=== PATIENT | male | born 1935 | race Caucasian/White ===

== ENCOUNTER 2024-07-21 15:10 | Emergency (ER) | payer OTHER, SELFPAY ==
[2024-07-21 15:15] VITALS: BP 143/81
[2024-07-21 15:34] LABS: % Basophils 0.3 % (0-2); % Eosinophils 3.6 % (0-6); % Immature Granulocytes 0.3 % (0-0.5); % Lymphocytes 29.4 % (20.5-51.1); % Monocytes 8.5 % (1.7-9.3); % Neutrophils 57.9 % (42.2-75.2); Absolute Eosinophils 0.2 10^3/uL (0-0.7); Absolute Monocytes 0.6 10^3/uL (0.1-0.6); Absolute Neutrophils 3.9 10^3/uL (1.4-6.5); Hemoglobin 14.6 g/dL (13.0-18.0); Mean Corp Hgb Conc. 35.6 g/dL (33.0-37.0); Mean Corpuscular Hgb 30.5 pg (27.0-31.0); Mean Corpuscular Volume 85.8 fL (80.0-94.0); Mean Platelet Volume 10.7 fL (7.4-10.4); Nucleated Red Blood Cells % 0 % (-); Platelet Count 231 10^3/uL (130-400); Red Blood Cell Count 4.78 10^6/uL (4.70-6.10); Red Cell Dist. Width 13.7 % (11.5-14.5); White Blood Cell Count 6.7 10^3/uL (4.8-10.8)
--- NOTE | 2024-07-21 15:39 | ED.GENMED ---
ED Provider Triage
<Jorge Tsai PA-C - Last Filed: 07/22/24 10:10>
-
Patient seen by provider in Triage?: Seen in Triage
Attestation: A medical screening examination has been initiated by a qualified medical provider. Based on the assessment performed at this time, it has been determined that an emergent medical condition may exist and the patient has been informed
that further medical evaluation and possible additional diagnostic testing may be needed.
HPI: 89-year-old male presents the emergency department for evaluation of lightheadedness and slow pulse rate noticed at home. He states his pulse oximeter was reading a heart rate in the 30s to 40s. Denies chest pain or shortness of breath
GENERAL: Alert , in no apparent distress
EYE: No visual abnormalities.
NECK: Trachea midline
ENT: No visible abnormalities.
LUNGS: No acute respiratory distress
NEUROLOGICAL: Alert and oriented
SKIN: Skin intact. No visible changes.
MUSCULOSKELETAL: Moving extremities normally
PSYCH: Normal and appropriate interaction.
A/P: Check CbC, CMP, EKG. VS normal in triage
This is a medical evaluation conducted in person to initiate diagnostic evaluation and provide initial therapeutics. Please see further documentation by the treating clinician.
History of Present Illness
<Jorge Tsai PA-C - Last Filed: 07/22/24 10:10>
General
Chief Complaint: Heart Rate Problem
Time Seen by Provider: 07/21/24 19:00
<Hansel Hines MD - Last Filed: 07/21/24 21:03>
General
Source: patient
Exam Limitations: none
History of Present Illness
History of Present Illness:
89-year-old male was outside working. Light work. Developed relatively sudden lightheadedness. Went inside checked his blood pressure which was elevated with a systolic in 150s. Heart rate was in the 40s. Patient felt fuzzy throughout the day.
No chest pain shortness of breath. Similar episode last week. Currently asymptomatic
Past History
<Jorge Tsai PA-C - Last Filed: 07/22/24 10:10>
Past History
ED Past Medical History: Asthma and Hypercholesterolemia; Negative CVA or IDDM
Social History
Tobacco: Non-smoker
Alcohol: None
Drug: None
Personal:
Living: with family
Phy Exam
<Hansel Hines MD - Last Filed: 07/21/24 21:03>
Physical Exam
Physical Exam:
GENERAL: Alert and oriented in no apparent distress
EYE: Orbits normal.
NECK: Supple, no thyroid palpable
ENT: Pharynx without erythema
CARDIAC: Regular rate and rhythm occasional skipped beat without any obvious murmurs.
LUNGS: Clear breath sounds,normal
ABDOMEN: Soft, without focal tenderness or distention
NEUROLOGICAL: Alert and oriented , grossly non-focal. Speech normal.
SKIN: Warm and dry, no rash or lesion, no discoloration, skin intact.
MUSCULOSKELETAL: No edema,no deformity.Good color
PSYCH: Normal and appropriate interaction.
Course
<Jorge Tsai PA-C - Last Filed: 07/22/24 10:10>
Orders/Labs/Results
Orders:
Orders
07/21/24 15:11
Electrocardiogram (*1) Urgent
Reason for Study: Chest Pain
EKG- Treatment ONCE
07/21/24 15:22
Complete Blood Count/With Diff Urgent
Comprehensive Metabolic Panel Urgent
TSH Urgent
Abnormal Lab Results
07/21/24
15:22
MPV 10.7 H fL
(7.4-10.4)
BUN 21 H mg/dl
(9-20)
Glucose 160 H mg/dl
(70-99)
Total Bilirubin 1.5 H mg/dl
(0.2-1.3)
07/21/24 15:22
07/21/24 15:22
Vital Signs
Initial and Last Documented VS:
Initial Vital Signs
Temp Pulse Resp BP Pulse Ox
99 F 50 18 143/81 95
07/21/24 15:15 07/21/24 15:15 07/21/24 15:15 07/21/24 15:15 07/21/24 15:15
Last Documented Vital Signs
Temp Pulse Resp BP Pulse Ox
99 F 60 19 133/62 94
07/21/24 15:15 07/21/24 20:45 07/21/24 20:45 07/21/24 20:00 07/21/24 20:15
<Hansel Hines MD - Last Filed: 07/21/24 21:03>
Orders/Labs/Results
Orders:
Orders
07/21/24 15:11
Electrocardiogram (*1) Urgent
Reason for Study: Chest Pain
EKG- Treatment ONCE
07/21/24 15:22
Complete Blood Count/With Diff Urgent
Comprehensive Metabolic Panel Urgent
TSH Urgent
Abnormal Lab Results
07/21/24
15:22
MPV 10.7 H fL
(7.4-10.4)
BUN 21 H mg/dl
(9-20)
Glucose 160 H mg/dl
(70-99)
Total Bilirubin 1.5 H mg/dl
(0.2-1.3)
07/21/24 15:22
07/21/24 15:22
Vital Signs
Initial and Last Documented VS:
Initial Vital Signs
Temp Pulse Resp BP Pulse Ox
99 F 50 18 143/81 95
07/21/24 15:15 07/21/24 15:15 07/21/24 15:15 07/21/24 15:15 07/21/24 15:15
Last Documented Vital Signs
Temp Pulse Resp BP Pulse Ox
99 F 60 19 133/62 94
07/21/24 15:15 07/21/24 20:45 07/21/24 20:45 07/21/24 20:00 07/21/24 20:15
<Hansel Hines MD - Last Filed: 07/21/24 21:03>
MDM/Problems Addressed
Differential Diagnosis Includes:
Patient describing an episode of lightheadedness without chest pain shortness of breath or diaphoresis. Blood pressure was actually high during this episode. Heart rate was low. He is in a normal sinus rhythm in the 70s but at times will have
runs of bigeminy where his palpable pulses half of that. Although during these episodes he remains asymptomatic. This may be what he was feeling when his heart rate was in the 40s. EKG here does have some lateral ST depressions although a
previous monitor strips are suspicious of the same. We have no EKG since 2017. Will discuss plan with cardiology
<Jorge Tsai PA-C - Last Filed: 07/22/24 10:10>
*Critical Care Note
Total Time (30-74mins, 75-104mins- exclusive of procedures): Not Applicable
<Hansel Hines MD - Last Filed: 07/21/24 21:03>
*Pulse Oximetry
Patient hypoxic: no
*EKG
Interpreted by ED Provider?: Yes
Interpretation: normal
Comparison EKG: changes noted
Heart Rate: 98
Rate: normal
Rhythm: sinus and PVC's
[place]: normal axis
Interval: normal interval
QRS Pattern: normal QRS
Ischemia: ST depression
Data Reviewed
Review of Other/Old Records Reveals: Labs, Records and Testing
<Hansel Hines MD - Last Filed: 07/21/24 21:03>
Update Note
Update Note:
Patient is remained asymptomatic and comfortable. No recurrent episodes. No unusual arrhythmias. Discussed with cardiology. Comfortable with outpatient follow-up.
ED Attending Note
<Jorge Tsai PA-C - Last Filed: 07/22/24 10:10>
-
Portions of this chart may have been created with voice recognition software.� Occasional wrong word or��sound alike� substitutions may have occurred due to the inherent limitations of voice recognition software.
Discharge Plan
Departure
Patient Disposition: Home (Routine Discharge)
Date of Disposition: 07/21/24
Time of Disposition: 21:02
Patient with high blood pressure during this ER visit?: Yes
Discharge Problem:
Near syncope, Episodic bradycardia
Instructions: Near Fainting (DC), BLOOD PRESSURE
Prescriptions:
No Action
atorvastatin 80 MG tablet
80 mg PO QPM Qty: 30 0RF
ezetimibe 10 MG tablet
10 mg PO HS
tamsulosin 0.4 MG capsule
0.8 mg PO HS
montelukast 10 MG tablet
10 mg PO QPM
clopidogrel 75 MG tablet
75 mg PO DAILY
cetirizine [Zyrtec] 10 mg Tablet
10 mg PO DAILY PRN (Reason: allergies)
ascorbic acid (vitamin C) [Vitamin C] 500 MG tablet
1,000 mg PO DAILY
oxycodone 5 mg tablet
5 - 10 mg PO Q6H PRN (Reason: moderate-severe pain) Qty: 30 0RF
Rx Instructions:
1 tab for moderate pain, 2 if severe.
Dx total joint.
dexamethasone 4 mg tablet
4 mg PO BID Qty: 7 0RF
Rx Instructions:
Start night of discharge and continue twice a day for 3 days post-surgery.
Take with food.
ondansetron HCl 4 mg tablet
4 mg PO Q6H PRN (Reason: nausea and vomiting) Qty: 30 0RF
Rx Instructions:
Take 1/2 hour prior to Oxycodone if experiencing recurrent nausea.
famotidine [Pepcid] 20 mg tablet
20 mg PO HS Qty: 30 0RF
Rx Instructions:
Take nightly while on full dose Aspirin post-surgery to prevent GI upset.
fluticasone propionate 1 SPRAY spray,suspension
2 spray intranasal DAILY
albuterol sulfate 90 mcg/actuation Hfa Aerosol Inhaler
2 puff INHALATION Q6H PRN (Reason: SOB)
aspirin 325 mg tablet
325 mg PO DAILY Qty: 30 0RF
Rx Instructions:
Take daily x4 weeks for blood clot prevention.
docusate sodium [Colace] 100 mg capsule
100 mg PO BID Qty: 30 0RF
senna 8.6 mg capsule
17.2 mg PO BID Qty: 30 0RF
acetaminophen [Acetaminophen Extra Strength] 500 mg tablet
1,000 mg PO Q6H Qty: 60 0RF
Rx Instructions:
DO NOT exceed >4000 mg daily.
mupirocin 2 % ointment
1 applic intranasal BID Qty: 1 0RF
chlorthalidone 25 MG tablet
25 mg PO DAILY Qty: 30 0RF
Rx Instructions:
HOLD if systolic blood pressure <130 while on Oxycodone.
potassium chloride [Klor-Con M20] 20 MEQ tablet,ER particles/crystals
20 meq PO DAILY Qty: 0 0RF
Rx Instructions:
HOLD if holding Chlorthalidone.
folic acid 0.4 MG tablet
0.4 mg PO DAILY Qty: 0 0RF
cholecalciferol (vitamin D3) 1,000 UNITS tablet
1,000 units PO DAILY Qty: 30 0RF
budesonide-formoterol [Symbicort] 1 PUFF HFA aerosol inhaler
2 puff inhalation R DAILY Qty: 1 0RF
multivitamin with folic acid [Tab-A-Mahsa] 1 TABLET tablet
1 tab PO DAILY Qty: 0 0RF
Referrals:
Rodrigo Rios MD [Family Provider] - Follow up in 2-3 days
Activity Restrictions/Additional Instructions:
Call your president [employer] first thing in the morning. They are aware that you will be calling.
You need close follow-up and likely will need a Holter monitor.
Interventions
Interventions:
*Risk Screen - Suicide Last Done: 07/21/24 15:15
*General Assessment Last Done: 07/21/24 18:01
*Neglect/Abuse Screening Last Done: 07/21/24 18:01
ED- Fall Risk Assessment Last Done: 07/21/24 18:01
*ED COVID-19 Vaccine History Last Done: 07/21/24 18:01
*Nursing Disposition Last Done: 07/21/24 21:34
ED- Cardiac Assessment Last Done: 07/21/24 18:01
ED- Pulmonary Assessment Last Done: 07/21/24 18:01
Discharge Date and Time
Discharge Date/Time: 07/21/24 21:34
Print Language: MONGOLIAN
[2024-07-21 15:43] LABS: ALT (SGPT) 33 U/L (0-50); AST (SGOT) 44 U/L (17-59); Albumin 4.5 g/dl (3.5-5.0); Alkaline Phosphatase 99 U/L (38-126); Blood Urea Nitrogen 21 mg/dl (9-20); Calcium 10.2 mg/dl (8.4-10.2); Carbon Dioxide 23 mmol/L (22-30); Chloride 101 mmol/L (98-107); Glucose 160 mg/dl (70-99); Potassium 4.1 mmol/L (3.5-5.1); Sodium 137 mmol/L (135-145); Total Bilirubin 1.5 mg/dl (0.2-1.3); Total Protein 7.2 g/dl (6.3-8.2); eGFR > 60.00
[2024-07-21 16:13] LABS: TSH 2.89 uIU/ml (0.47-4.68)
[2024-07-21 17:21] VITALS: BP 148/72
[2024-07-21 18:00] VITALS: BP 143/68
[2024-07-21 18:01] VITALS: BMI 26.1
[2024-07-21 19:00] VITALS: BP 140/75
[2024-07-21 20:00] VITALS: BP 133/62
== END 2024-07-21 21:34 | disposition home or self-care (01) ==
LOC: EMR 15:10
PROVIDERS: Physician Assistant; EMERGENCY PHYSICIAN Emergency Medicine; FAMILY PHYSICIAN Family Medicine
DX: R55 Syncope and collapse (principal); R00.1 Bradycardia, unspecified; E78.00 Pure hypercholesterolemia, unspecified; J45.909 Unspecified asthma, uncomplicated
CPT/HCPCS: 99283; 80053; 84443; 85025; 93005

== ENCOUNTER → 2024-07-30 09:37 | Outpatient (REF) | payer OTHER, SELFPAY | LOC: RCS 09:37 | PROVIDERS: ATTENDING PHYSICIAN Internal Medicine Cardiovascular Disease; FAMILY PHYSICIAN Family Medicine | DX: R42 Dizziness and giddiness (principal); R00.1 Bradycardia, unspecified | CPT/HCPCS: 93225; 93226 ==

== ENCOUNTER → 2024-08-28 08:01 | Outpatient (REF) | payer OTHER, SELFPAY | LOC: RCS 08:01 | PROVIDERS: ATTENDING PHYSICIAN Internal Medicine Cardiovascular Disease; FAMILY PHYSICIAN Family Medicine | DX: I35.0 Nonrheumatic aortic (valve) stenosis (principal) | CPT/HCPCS: 93306 ==

== ENCOUNTER → 2025-02-12 08:20 | Outpatient (REF) | payer OTHER, SELFPAY | LOC: RAD 08:20 | PROVIDERS: ATTENDING PHYSICIAN Family Medicine | DX: M25.552 Pain in left hip (principal); Z68.26 Body mass index [BMI] 26.0-26.9, adult | CPT/HCPCS: 73502 ==

== ENCOUNTER 2025-02-17 22:52 | Inpatient (IN) | payer OTHER, SELFPAY ==
[2025-02-17] VITALS (17 sets, daily range): BP systolic 82–138; BP diastolic 41–72; BMI 25.2
[2025-02-17 19:24] LABS: % Basophils 0.3 % (0-2); % Eosinophils 1.2 % (0-6); % Immature Granulocytes 0.3 % (0-0.5); % Lymphocytes 18.5 % (20.5-51.1); % Monocytes 8.2 % (1.7-9.3); % Neutrophils 71.5 % (42.2-75.2); Absolute Eosinophils 0.1 10^3/uL (0-0.7); Absolute Lymphocytes 1.2 10^3/uL (1.2-3.4); Absolute Monocytes 0.5 10^3/uL (0.1-0.6); Absolute Neutrophils 4.6 10^3/uL (1.4-6.5); Hematocrit 25.8 % (39.0-52.0); Hemoglobin 8.7 g/dL (13.0-18.0); Mean Corp Hgb Conc. 33.7 g/dL (33.0-37.0); Mean Corpuscular Hgb 30.2 pg (27.0-31.0); Mean Corpuscular Volume 89.6 fL (80.0-94.0); Mean Platelet Volume 10.9 fL (7.4-10.4); Nucleated Red Blood Cells % 0 % (-); Platelet Count 233 10^3/uL (130-400); Red Blood Cell Count 2.88 10^6/uL (4.70-6.10); Red Cell Dist. Width 13.7 % (11.5-14.5); White Blood Cell Count 6.5 10^3/uL (4.8-10.8)
[2025-02-17 19:38] LABS: ALT (SGPT) 26 U/L (0-50); AST (SGOT) 30 U/L (17-59); Albumin 3.4 g/dl (3.5-5.0); Alkaline Phosphatase 78 U/L (38-126); Blood Urea Nitrogen 56 mg/dl (9-20); Calcium 9.7 mg/dl (8.4-10.2); Carbon Dioxide 28 mmol/L (22-30); Chloride 101 mmol/L (98-107); Estimated Creatinine Clearance 45 ml/min; Glucose 172 mg/dl (70-99); Potassium 3.7 mmol/L (3.5-5.1); Sodium 136 mmol/L (135-145); Total Bilirubin 0.6 mg/dl (0.2-1.3); Total Protein 5.6 g/dl (6.3-8.2); eGFR > 60.00
[2025-02-17 19:48] LABS: Troponin I < 0.012 ng/ml
[2025-02-17] MEDS: PROTONIX 100 IV (21:58)
[2025-02-17] MEDS: PROTONIX IV 80 MG IV (21:58)
--- NOTE | 2025-02-17 22:00 | ED.GENMED ---
History of Present Illness
General
Chief Complaint: Fainting Sensation
Source: patient
Time Seen by Provider: 02/17/25 21:37
History of Present Illness
History of Present Illness:
This patient is an 89-year-old male who presents emergency department with complaints of black stool, happening about 2-3 times a day, for the last 3 days. He has never had this before. He denies a history of GI bleed in the past, peptic ulcer
disease, gastritis, heavy nonsteroidal use, heavy alcohol use. He has never had an endoscopy. Today, he was extremely dizzy with upright position and slightly short of breath which prompted his visit here. He denies bright red blood per rectum,
hematemesis, hematuria, or bleeding elsewhere. He denies chest pain, abdominal pain, fever, chills, nausea, vomiting, or other complaints
Past History
Past History
ED Past Medical History: Asthma, HTN, Hypercholesterolemia and Other (Stroke, hypertension, BPH, lower GI bleed due to internal hemorrhoids, diverticulosis, rectal cancer, aortic stenosis, COPD); Negative CVA or IDDM
ED Past Surgical History: Other (Colorectal)
Social History
Tobacco: Non-smoker
Alcohol: None
Drug: None
Personal:
Living: with family
Phy Exam
Physical Exam
Physical Exam:
GENERAL: Alert , in no apparent distress
EYE: pupils equal and reactive, conjunctive a pale
NECK: Supple, no significant adenopathy.
ENT: o/p clr, mmm.
CARDIAC: Regular rate and rhythm, systolic murmur noted.
LUNGS: Clear breath sounds bilaterally, no acute respiratory distress, no wheezes/rales/rhonchi
ABDOMEN: Soft, without focal tenderness, no r/g, no cvat
NEUROLOGICAL: Alert and oriented, no focal neuro deficits
SKIN: Warm and dry, skin intact.
MUSCULOSKELETAL: No edema, well perfused.
PSYCH: Normal and appropriate interaction.
Course
Orders/Labs/Results
Orders:
Orders
02/17/25 18:48
ECG [Electrocardiogram (*1)] Urgent
Reason for Study: Syncope
02/17/25 19:17
Type And Crossmatch [Type+Screen] Urgent
B12 [Vitamin B12] Urgent
Complete Blood Count/With Diff Urgent
Comprehensive Metabolic Panel Urgent
Folate Urgent
Iron Urgent
Comment: ADDED
Total Iron Binding Urgent
Comment: ADDED
Troponin I Urgent
02/17/25 21:44
Pantoprazole 80 mg/100 ml Nss [Protonix] 80 mg in 100 ml IV NOW
Pantoprazole [Protonix IV] 80 mg IV NOW STA
02/17/25 22:29
Admit/Transfer Patient As Directed
Co-Sign Provider:
Level of Care: Inpatient admission
Assign to:: IMU- Intermediate Care
Physician / Group: chavo
Diagnosis: UGIB
Reason for Hospitalization: UGIB
Expected length of stay greater than two midnights?: Yes
ELOS- Estimated Length of Stay in days: 2
I certify the patient meets the requirements for IP care: Yes
PRN Pain Medication Management As Directed
May give lesser potent ordered pain med per pt: Yes
preference::
Protocol:: Medication orders for pain may be administered in a
manner that supports deferring to patient preference
when the pt is:
- Requesting an ordered lesser potent pain medication.
Least to most potent pain medications are defined
as: acetaminophen < NSAID < tramadol < opioids
(morphine, oxycodone, hydromorphone).
- Requesting a lesser dose of the same medication IF
ORDERED.
- Requesting a less intrusive route of administration
if both routes are prescribed by the provider (PO <
IV).
02/17/25 22:30
Code Status As Directed
Resuscitation Status: Full Code
02/17/25 22:34
0.9% Sodium Chloride 500 ml [Nss] 500 ml IV BOLUS
02/17/25 23:00
Flush (0.9% Sodium Chloride) [Flush (Nss)] See Dose Instructions IV PER PROTOCOL
02/18/25 00:09
Polyethylene Glycol Powder [Miralax] 17 grams PO DAILYPRN PRN
02/18/25 00:09
Consult Notification Routine
Specialty to Notify: Gastroenterology
Date consulting provider notified: 02/18/25
Time consulting provider notified: 07:06
Notified:: Provider
GASTROINTESTINAL CONSULT Routine
Consulting Provider: Nazia Poe
Was physician already notified: No
Reason for consult: UGIB
Activity As Directed
Activity Level: As Tolerated
Pneumatic Compression Sleeves As Directed
Type: Knee high
Vital Signs As Directed
Frequency: Per unit guidelines
DX Deep Vein Thrombosis Video Routine
02/18/25 03:53
Complete Blood Count/With Diff IN AM
Comprehensive Metabolic Panel IN AM
02/18/25 08:00
Pantoprazole 80 mg/100 ml Nss [Protonix] 80 mg in 100 ml IV Q10H
02/18/25 Dinner
NPO
Allow oral meds: Yes
Allow clear liquids: No
02/18/25 19:18
Hemoglobin Q8
Abnormal Lab Results
02/17/25
19:17
RBC 2.88 L 10^6/uL
(4.70-6.10)
Hgb 8.7 L g/dL
(13.0-18.0)
Hct 25.8 L %
(39.0-52.0)
MPV 10.9 H fL
(7.4-10.4)
Lymphocytes % 18.5 L %
(20.5-51.1)
BUN 56 H mg/dl
(9-20)
Glucose 172 H mg/dl
(70-99)
Iron 46 L ug/dl
(49-181)
% Saturation 13 L %
(20-50)
Total Protein 5.6 L g/dl
(6.3-8.2)
Albumin 3.4 L g/dl
(3.5-5.0)
Folate > 20.0 H ng/ml
(2.76-20)
Crossmatch IS Only See Detail
02/17/25 19:17
02/17/25 19:17
Vital Signs
Initial and Last Documented VS:
Initial Vital Signs
Temp Pulse Resp Pulse Ox
97.9 F 93 16 97
02/17/25 18:46 02/17/25 18:46 02/17/25 18:46 02/17/25 18:46
Last Documented Vital Signs
Temp Pulse Resp BP Pulse Ox
99 F 70 16 113/57 99
02/23/25 07:36 02/23/25 07:36 02/23/25 07:36 02/23/25 07:36 02/23/25 07:36
*Critical Care Note
Total Time (30-74mins, 75-104mins- exclusive of procedures): 32
Update Note
Update Note:
Patient presents to the Emergency Department with lightheadedness with upright position, black stools
Number and Complexity of Problems Addressed at the Encounter
� Chronic conditions affecting care:
� Acute Exacerbation and/or Progression of Chronic Illness:
� Differential Diagnosis includes: GI bleed related to peptic ulcers, gastritis, heavy nonsteroidal use, anemia, electrolyte disorder, etc. etc.
Amount and/or Complexity of Data to be Reviewed and Analyzed
� I performed an independent evaluation of and my interpretation is:
EKG: Read by me, normal sinus rhythm, normal rate, normal axis, no acute ischemia
CT:
Xrays:
Laboratory Studies: Patient newly anemic at 8.7, prior value was 14.6 in July 2024, elevated BUN consistent with suspected GI bleed, mild hyperglycemia without associated acidosis
Other:
� Review of other/old records reveals: Discharge summaries reviewed, patient admitted with a lower GI bleed in 2019 related to internal hemorrhoids was on antiplatelet agent at that time.
� Clinical information was obtained by an independent historian:
� Prescriptions/Medications Considered but not given:
� Further testing considered but not performed:
Risk of Complications and/or Morbidity or Mortality of Patient Management
� Social determinants of health affecting care:
� Discussion with other providers (PCP, Hospitalists, Consultants, etc):
� Escalation of care including admission/observation vs risk of discharge considered: Patient is symptomatic when he sits up. He is asymptomatic laying in bed and his blood pressure is stable at this time. No active bleeding
noted. PPI drip initiated. Consideration for blood transfusion however given stable vital signs and lack of active bleeding, will observe. Admission for further workup including suspected endoscopy, discussed with Dr. Gee.
ED Attending Note
-
Portions of this chart may have been created with voice recognition software.� Occasional wrong word or��sound alike� substitutions may have occurred due to the inherent limitations of voice recognition software.
Discharge Plan
Departure
Patient Disposition: Admit
Date of Disposition: 02/17/25
Time of Disposition: 22:05
Admit to doctor: nyla
Presentation/result/management discussed w/ accepting MD/DO: Hospitalist
Condition: Fair
Discharge Problem:
GI bleed
Interventions
Interventions:
*Risk Screen - Suicide Last Done: 02/17/25 18:50
*General Assessment Last Done: 02/17/25 18:50
*Neglect/Abuse Screening Last Done: 02/17/25 18:50
*ED- Fall Risk Assessment Last Done: 02/17/25 19:24
*ED COVID-19 Vaccine History Last Done: 02/17/25 19:24
*Nursing Disposition Last Done: 02/17/25 23:25
ED- Cardiac Assessment Last Done: 02/17/25 19:24
ED- Neurological Assessment Last Done: 02/17/25 19:24
Discharge Date and Time
Discharge Date/Time: 02/18/25 00:15
--- NOTE | 2025-02-17 22:32 | HPS.HSE ---
Family Physician
-
Family Physician: Rodrigo Rios
Chief Complaint
-
black stool
History of Present Illness
89-year-old male past medical history of hypertension, hyperlipidemia, osteoarthritis, carotid atherosclerosis, moderate aortic stenosis, mild to moderate aortic regurgitation, CVA, COPD, questionable obstructive sleep apnea, diverticulosis,
hemorrhoids, colon cancer status post partial colectomy and radiation, multinodular goiter, polymyalgia rheumatica, BPH, eczema, osteopenia, prediabetes, presenting with black stool 2-3 times a day for the past 3 days. Denies NSAID use or heavy
alcohol use. Never had endoscopy. Today he was very dizzy with upright position slight shortness of breath prompted his visit here. He denies any bright red blood per rectum. Denies chest pain or abdominal pain, fevers or chills or nausea or
vomiting.
Medical History
Past Medical History
Past Medical History: Reports Other (hypertension, hyperlipidemia, osteoarthritis, carotid atherosclerosis, moderate aortic stenosis, mild to moderate aortic regurgitation, CVA, COPD, questionable obstructive sleep apnea, diverticulosis,
hemorrhoids, colon cancer status post partial colectomy and radiation, multinodular goiter, polymya)
Past Surgical History: Reports None
Social History
Tobacco: Non-smoker
Alcohol: None
Drug: None
Family History
Family History: Not pertinent
Allergies / Home Medications
Allergies reflects when Allergies were last updated in [facility].
Home Medications with original date entered in [facility]
Allergy/Medication List:
Allergies
Allergy/AdvReac Type Severity Reaction Status Date / Time
No Known Allergies Allergy Verified 02/17/25 18:53
Home Medications
budesonide-formoterol HFA 160 mcg-4.5 mcg/actuation aerosol inhaler (Symbicort) 2 puff inhalation R DAILY ##1 09/12/16
cholecalciferol (vitamin D3) 25 mcg (1,000 unit) tablet 1,000 units PO DAILY ##30 09/12/16
folic acid 400 mcg tablet 0.4 mg PO DAILY ##0 09/12/16
multivitamin with folic acid 400 mcg tablet (Tab-A-Mahsa) 1 tab PO DAILY ##0 09/12/16
atorvastatin 80 mg tablet 80 mg PO QPM ##30 10/03/16
ezetimibe 10 mg tablet 10 mg PO HS Mental Health/Anxiety 04/28/20
montelukast 10 mg tablet 10 mg PO QPM Lung/breathing issues 04/28/20
tamsulosin 0.4 mg capsule 0.8 mg PO HS Urinary issue 04/28/20
clopidogrel 75 mg tablet 75 mg PO DAILY Blood clot prevention/tx 04/29/20
ascorbic acid (vitamin C) 500 mg tablet (Vitamin C) 1,000 mg PO DAILY 07/03/23
cetirizine 10 mg tablet (Zyrtec) 10 mg PO DAILY PRN allergies 07/03/23
albuterol sulfate 90 mcg/actuation aerosol inhaler 2 puff inhalation Q6H PRN SOB 07/09/23
dexamethasone 4 mg tablet 4 mg PO BID inflammation #7 tabs 07/09/23
famotidine 20 mg tablet (Pepcid) 20 mg PO HS #30 tabs 07/09/23
fluticasone propionate 50 mcg/actuation nasal spray,suspension 2 spray intranasal DAILY 07/09/23
ondansetron HCl 4 mg tablet 4 mg PO Q6H PRN nausea and vomiting #30 tabs 07/09/23
oxycodone 5 mg tablet 5 - 10 mg (1 - 2 x 5 mg) PO Q6H PRN moderate-severe pain #30 tabs 07/09/23
acetaminophen 500 mg tablet (Acetaminophen Extra Strength) 1,000 mg (2 x 500 mg) PO Q6H #60 tabs 07/29/23
aspirin 325 mg tablet 325 mg PO DAILY #30 tabs 07/29/23
chlorthalidone 25 mg tablet 25 mg PO DAILY #30 tabs 07/29/23
docusate sodium 100 mg capsule (Colace) 100 mg PO BID #30 caps 07/29/23
mupirocin 2 % topical ointment 1 applic intranasal BID #1 tube 07/29/23
potassium chloride 20 mEq tablet,extended release(part/cryst) (Klor-Con M) 20 meq PO DAILY Supplement #0 tabs 07/29/23
sennosides 8.6 mg capsule (senna) 17.2 mg (2 x 8.6 mg) PO BID #30 caps 07/29/23
Review of Systems
-
History Source: Patient
A 12 point ROS was completed and negative except as noted: Yes
Constitutional: Reports No Symptoms
EENT: Reports No Symptoms
Respiratory: Reports No Symptoms
Cardiac: Reports No Symptoms
Abdomen/GI: Reports See HPI
: Reports No Symptoms
Musculoskeletal: Reports No Symptoms
Skin: Reports No Symptoms
Neurological: Reports No Symptoms
Endocrine: Reports No Symptoms
Hematologic/Lymphatic: Reports No Symptoms
Psych: Reports No Symptoms
Physical Exam
Vital Signs
Vital Signs
Temp Pulse Resp BP Pulse Ox
97.9 F 93 20 105/57 98
02/17/25 18:46 02/17/25 21:30 02/17/25 21:30 02/17/25 21:30 02/17/25 21:30
Physical Exam
General: Well Developed, Well Nourished and No Apparent Distress
HEENT: NormoCephalic, Moist mucous membranes and Atraumatic
Respiratory: Clear
Cardiac: S1/S2 and Regular Rhythm; No Murmur or Rub
GI: Soft, Non Tender, Non Distended and Normal Bowel Sounds; No Organomegaly
Rectal: Deferred by Provider
Musculoskeletal: No Clubbing, No Cyanosis and No Edema
Skin: No Rash
Neuro: Nonfocal/grossly intact
Laboratory Results
-
02/17/25 19:17
02/17/25 19:17
Laboratory Results
Total Bilirubin 0.6 mg/dl (0.2-1.3) 02/17/25 19:17
AST 30 U/L (17-59) 02/17/25 19:17
ALT 26 U/L (0-50) 02/17/25 19:17
Alkaline Phosphatase 78 U/L (38-126) 02/17/25 19:17
Troponin I < 0.012 ng/ml 02/17/25 19:17
Data Reviewed
-
Lab Data: Labs Reviewed by me
Old Records: Reviewed
Impression/Plan
-
IMPRESSION:
PLAN:
# Upper GI bleeding with orthostatic symptoms
# Symptomatic acute blood loss anemia with orthostatic symptoms
-No active bleeding
- Hemoglobin 8.7 from 14.6 in July
-Hold Plavix
-Hold antihypertensive medication
- Type and screen
-Blood consent signed
-Transfuse for hemoglobin under 7 or active bleeding
-IV fluid bolus
-Check hemoglobin every 8 hours
- Protonix drip
- N.p.o.
-Check iron studies, B12 and folate
- GI consulted
History of colon cancer status post partial colectomy and radiation
Diverticulosis
Moderate aortic stenosis
Mild to moderate aortic regurgitation
History of hemorrhoids
Essential hypertension
- Hold chlorthalidone
Hyperlipidemia
- Continue statin, Zetia
Osteoarthritis
Carotid atherosclerosis
History of CVA
COPD
- Continue montelukast
- Continue inhalers
Questionable obstructive sleep apnea
Colon cancer status post partial colectomy/radiation
Multinodular goiter
Polymyalgia rheumatica
BPH
- Continue tamsulosin
Eczema
Osteopenia
Prediabetes
Full code
DVT prophylaxis SCDs
N.p.o.
[2025-02-17] MEDS: NSS 500 IV (23:09)
[2025-02-17 23:40] LABS: Iron 46 ug/dl (49-181)
[2025-02-17 23:50] LABS: Percent Saturation 13 % (20-50); Total Iron Binding Capacity 344 ug/dl (261-462)
[2025-02-18] VITALS (26 sets, daily range): BP systolic 14–130; BP diastolic 51–73; BMI 25.1
[2025-02-18 00:50] LABS: Folate > 20.0 ng/ml (2.76-20); Vitamin B12 857 pg/ml (239-931)
--- NOTE | 2025-02-18 00:57 | PTCARENOTE ---
Patient transported to IMU from ED. Report received from [facility]. Pt AAOx3, pleasant. Pt NSR w/ PVCs on the monitor. Pt on room air SpO2 96%. No BM at this time. Pt appears pallor, and experiencing dizziness when sitting up. Pt says his last BM
was 5/7 in AM. Pt describes stool as 'formed and black'. Pt last dose of Plavix 5/7 AM. Iv Protonix gtt cont. SCDs on. Pt educated and oriented to the unit. Call rojas within reach.
[2025-02-18 04:33] LABS: ALT (SGPT) 21 U/L (0-50); AST (SGOT) 23 U/L (17-59); Albumin 2.9 g/dl (3.5-5.0); Alkaline Phosphatase 62 U/L (38-126); Blood Urea Nitrogen 69 mg/dl (9-20); Carbon Dioxide 24 mmol/L (22-30); Chloride 106 mmol/L (98-107); Estimated Creatinine Clearance 49 ml/min; Glucose 167 mg/dl (70-99); Potassium 3.7 mmol/L (3.5-5.1); Sodium 139 mmol/L (135-145); Total Bilirubin 0.7 mg/dl (0.2-1.3); eGFR > 60.00
[2025-02-18 04:42] LABS: % Basophils 0.3 % (0-2); % Eosinophils 0.3 % (0-6); % Immature Granulocytes 0.3 % (0-0.5); % Lymphocytes 24.6 % (20.5-51.1); % Monocytes 8.2 % (1.7-9.3); % Neutrophils 66.3 % (42.2-75.2); Absolute Lymphocytes 1.5 10^3/uL (1.2-3.4); Absolute Monocytes 0.5 10^3/uL (0.1-0.6); Absolute Neutrophils 4.3 10^3/uL (1.4-6.5); Hematocrit 20.1 % (39.0-52.0); Hemoglobin 6.8 g/dL (13.0-18.0); Mean Corp Hgb Conc. 33.8 g/dL (33.0-37.0); Mean Corpuscular Hgb 30.2 pg (27.0-31.0); Mean Corpuscular Volume 89.3 fL (80.0-94.0); Mean Platelet Volume 10.7 fL (7.4-10.4); Nucleated Red Blood Cells % 0 % (-); Platelet Count 209 10^3/uL (130-400); Red Blood Cell Count 2.25 10^6/uL (4.70-6.10); Red Cell Dist. Width 13.8 % (11.5-14.5); White Blood Cell Count 6.5 10^3/uL (4.8-10.8)
--- NOTE | 2025-02-18 05:02 | PTCARENOTE ---
Patient attempted to sit up, pt immediately stated he felt 'dizzy and weak'. Pt advised to lay back down and will alternatively try the bedpan for any BMs moving forward. Pt color is pallor, lips pale.
--- NOTE | 2025-02-18 06:01 | PTCARENOTE ---
Hgb 6.8 this AM. 1unit PRBCs ordered. Blood running.
[2025-02-18] MEDS: ZOFRAN 4 MG IV (06:59)
[2025-02-18] MEDS: PROTONIX 100 IV ×2 (07:28→20:21)
--- NOTE | 2025-02-18 07:30 | PTCARENOTE ---
Patient vomited out large amounts of blood with clots saturating gown and linens. Pt then vomited again and able to measure 200cc of bloody emesis. Blood is infusing. EDUARDA Cordoba made aware and ordered IV Zofran, administered, see MAR.
--- NOTE | 2025-02-18 08:59 | CON.GI ---
Addendum entered and electronically signed by Nazia Poe MD 02/18/25 11:20:
I saw and examined the patient.
The medical engineer note was reviewed and I agree with the note.
--melena/ hematemesis / UGI bleeding / hx of CVA on plavix
-- hx of colon cancer s/p resection in [place] . as per patient in remission . last colonoscopy 2019( details below )
plan
N.p.o.
Continue monitor H&H
Continue Protonix drip
Will schedule urgent endoscopy since patient had significant hematemesis this a.m ( Although it is recommended to wait for 5 days for Plavix washout for elective procedures )
Discussed with patient/family at bedside. Agreeable with procedure
Original Note:
Consultation
-
Date/Time Consultation Requested: 02/18/2025
Date/Time Consultation Performed: 02/18/2025
Requesting Provider: Dr Nazia Poe
Performing Provider: Dr Laya Judge
Reason for Consultation: upper GI bleed
Medical History
Chief Complaint / HPI
Chief Complaint: Melena
History of Present Illness:
89-year-old male with past history of CVA on Plavix, colon cancer s/p partial colectomy and radiation, hemorrhoids, diverticulosis presents with melena. GI is consulted to evaluate this.
Patient reports that he had 3 episodes of black stool started 2 days ago(02/16) and worsened. He had formed stools and no diarrhea. He called his PCP who told him to go to the ER immediately. Patient has a history of colon cancer s/p partial
colectomy and radiation at [place] in 2011. He denies NSAID use or heavy alcohol use. Patient patient reports of dizziness which started 1 day ago describing it as 'room spinning around' when he gets up from the bed. He also had 1 episode of
emesis with black color blood. His last colonoscopy in 2019 which showed diverticulosis in the sigmoid colon and in the descending colon, nonbleeding internal hemorrhoids, evidence of end-to-end [place]�colonic anastomosis. Hemoglobin is 6.8 and
currently patient is receiving 1 unit of blood.
Past Medical History
Past Medical History: CVA, HTN, Hypercholesterolemia, Valvular Disease (Aortic regurgitation, aortic stenosis) and Other (Diverticulosis, hemorrhoids, colon cancer s/p partial colectomy and radiation)
Past Surgical History: Bowel Resection (Partial colectomy)
Social History
Tobacco: Non-Smoker
Alcohol: None
Drug: None
Personal:
Living: With Family
Employment: Retired
Family History
Family History: Reviewed & Not Pertinent
Allergies / Home Medications
Allergy/AdvReac Type Severity Reaction Status Date / Time
No Known Allergies Allergy Verified 02/17/25 18:53
�Medication �Instructions �Recorded
budesonide-formoterol HFA 160 2 puff inhalation R DAILY ##1 09/12/16
mcg-4.5 mcg/actuation aerosol
inhaler (Symbicort)
cholecalciferol (vitamin D3) 25 1,000 units PO DAILY ##30 09/12/16
mcg (1,000 unit) tablet
folic acid 400 mcg tablet 0.4 mg PO DAILY ##0 09/12/16
multivitamin with folic acid 400 1 tab PO DAILY ##0 09/12/16
mcg tablet (Tab-A-Mahsa)
atorvastatin 80 mg tablet 80 mg PO QPM ##30 10/03/16
ezetimibe 10 mg tablet 10 mg PO HS Mental Health/Anxiety 04/28/20
montelukast 10 mg tablet 10 mg PO QPM Lung/breathing issues 04/28/20
tamsulosin 0.4 mg capsule 0.8 mg PO HS Urinary issue 04/28/20
clopidogrel 75 mg tablet 75 mg PO DAILY Blood clot 04/29/20
prevention/tx
ascorbic acid (vitamin C) 500 mg 1,000 mg PO DAILY 07/03/23
tablet (Vitamin C)
cetirizine 10 mg tablet (Zyrtec) 10 mg PO DAILY PRN allergies 07/03/23
albuterol sulfate 90 mcg/actuation 2 puff inhalation Q6H PRN SOB 07/09/23
aerosol inhaler
dexamethasone 4 mg tablet 4 mg PO BID inflammation #7 tabs 07/09/23
famotidine 20 mg tablet (Pepcid) 20 mg PO HS #30 tabs 07/09/23
fluticasone propionate 50 2 spray intranasal DAILY 07/09/23
mcg/actuation nasal
spray,suspension
ondansetron HCl 4 mg tablet 4 mg PO Q6H PRN nausea and 07/09/23
vomiting #30 tabs
oxycodone 5 mg tablet 5 - 10 mg (1 - 2 x 5 mg) PO Q6H 07/09/23
PRN moderate-severe pain #30 tabs
acetaminophen 500 mg tablet 1,000 mg (2 x 500 mg) PO Q6H #60 07/29/23
(Acetaminophen Extra Strength) tabs
aspirin 325 mg tablet 325 mg PO DAILY #30 tabs 07/29/23
chlorthalidone 25 mg tablet 25 mg PO DAILY #30 tabs 07/29/23
docusate sodium 100 mg capsule 100 mg PO BID #30 caps 07/29/23
(Colace)
mupirocin 2 % topical ointment 1 applic intranasal BID #1 tube 07/29/23
potassium chloride 20 mEq 20 meq PO DAILY Supplement #0 tabs 07/29/23
tablet,extended
release(part/cryst) (Klor-Con M)
sennosides 8.6 mg capsule (senna) 17.2 mg (2 x 8.6 mg) PO BID #30 07/29/23
caps
Review of Systems
-
All other systems: A 12 pt ROS was Negative except as stated above in HPI
Vital Signs
Temp Pulse Resp BP Pulse Ox
98.8 F 74 18 123/59 97
02/18/25 06:08 02/18/25 06:08 02/18/25 06:08 02/18/25 06:08 02/18/25 05:44
Physical Exam
Exam
General: Comfortable
HEENT: Normocephalic and Anicteric
Respiratory: Clear
Cardiac: S1/S2, Regular Rhythm and Murmur
GI: Soft, Non Tender, Non Distended and Normal Bowel Sounds
Neuro: AO x 3
Psych: Calm
Results
WBC 6.5 10^3/uL (4.8-10.8) 02/18/25 03:53
Hgb 6.8 g/dL (13.0-18.0) L* D 02/18/25 03:53
Hct 20.1 % (39.0-52.0) L* 02/18/25 03:53
MCV 89.3 fL (80.0-94.0) 02/18/25 03:53
Plt Count 209 10^3/uL (130-400) 02/18/25 03:53
Absolute Neuts (auto) 4.3 10^3/uL (1.4-6.5) 02/18/25 03:53
Sodium 139 mmol/L (135-145) 02/18/25 03:53
Potassium 3.7 mmol/L (3.5-5.1) 02/18/25 03:53
Chloride 106 mmol/L (98-107) 02/18/25 03:53
Carbon Dioxide 24 mmol/L (22-30) 02/18/25 03:53
BUN 69 mg/dl (9-20) H 02/18/25 03:53
Creatinine 1.0 mg/dL (0.7-1.3) 02/18/25 03:53
Calcium 9.0 mg/dl (8.4-10.2) 02/18/25 03:53
Total Bilirubin 0.7 mg/dl (0.2-1.3) 02/18/25 03:53
AST 23 U/L (17-59) 02/18/25 03:53
ALT 21 U/L (0-50) 02/18/25 03:53
Alkaline Phosphatase 62 U/L (38-126) 02/18/25 03:53
Diagnostic Image Results:
Prior GI Procedures:
EGD:
Colonoscopy: 05/03/20
-Diverticulosis in the sigmoid colon and in the descending colon.
- Non-bleeding internal hemorrhoids. This is likely the
source of rectal bleeding.
- Narrowing in the sigmoid colon that was transversed
using upper EGD scope.
- There was evidence of a prior end-to-end colo-colonic
anastomosis at 10 cm proximal to the anus
- No specimens collected.
Assessment / Plan
-
Assessment and plan
#Upper GI bleeding
#Acute anemia due to blood loss
# History of colon cancer s/p partial colectomy and radiation
- HB 6.8, currently being transfused 1 unit of blood
- Closely monitor H&H
- Continue IV fluids, PPI drip
- Previous colonoscopy in 2019 showed diverticulosis in the sigmoid colon and in the descending colon, nonbleeding internal hemorrhoids, evidence of end-to-end [place]�colonic anastomosis.
- Typically, Plavix is held for 5 days prior to endoscopy, but given the patient's active bleeding, we will plan to proceed with the scope sooner.
- Reports of dizziness --- likely due to low HB
-
-
Thank you for consultation and allowing me to participate in the patient's care. Please call the conveyor worker GI physician during the after hours with any questions or concerns.
[2025-02-18 10:46] LABS: Hematocrit 25.1 % (39.0-52.0); Hemoglobin 8.7 g/dL (13.0-18.0)
[2025-02-18] MEDS: REGLAN 5 MG IV (11:39)
--- NOTE | 2025-02-18 13:52 | W.PN.UPDATE ---
Update Note
Progress Note Update
Updated patient's daughter ( Anette ) about EGD findings/ plan .
--- NOTE | 2025-02-18 14:12 | W.PN.HOSP.TC ---
Today's Communication/Plan
-
monitor for bleeding
npo
PPI
hold plavix
Assessment / Plan
Assessment / Plan
Physical Exam
General: Well Developed, Well Nourished and No Apparent Distress
HEENT: NormoCephalic, Moist mucous membranes and Atraumatic
Respiratory: Clear
Cardiac: S1/S2 and Regular Rhythm; No Murmur or Rub
GI: Soft, Non Tender, Non Distended and Normal Bowel Sounds; No Organomegaly
Rectal: Deferred by Provider
Musculoskeletal: No Clubbing, No Cyanosis and No Edema
Skin: No Rash
Neuro: Nonfocal/grossly intact
PLAN:
# Upper GI bleeding with orthostatic symptoms
# Symptomatic acute blood loss anemia with orthostatic symptoms
Trend CBC, HgB goal > 7
-Hold Plavix
-Hold antihypertensive medication
- GI consulted
EGD 02/17
- Tortuous esophagus.
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
- Hemostatic spray ( endoclot ) applied.
-Small amount of Hematin (altered
blood/mdzcpv-qycvda-vdmt material) was found in the
gastric body.
- Normal examined duodenum.
- No specimens collected ( patient has been on plavix
and was actively having UGI bleeding on admission )
- NPO today.
- continue PPI drip
-hold plavix
- monitor H/H
- repeat EGD with bx after plavix wash out next week
-will get oncology staging work up once UGI bleeding resolves.
History of colon cancer status post partial colectomy and radiation
Diverticulosis
Moderate aortic stenosis
Mild to moderate aortic regurgitation
History of hemorrhoids
Essential hypertension
- Hold chlorthalidone
Hyperlipidemia
- Continue statin, Zetia
Osteoarthritis
Carotid atherosclerosis
History of CVA
COPD
- Continue montelukast
- Continue inhalers
Questionable obstructive sleep apnea
Colon cancer status post partial colectomy/radiation
Multinodular goiter
Polymyalgia rheumatica
BPH
- Continue tamsulosin
Eczema
Osteopenia
Prediabetes
Full code
DVT prophylaxis SCDs
N.p.o.
Anticipated Discharge: 24 - 48 hours
Subjective/Interval History
-
Date of Service: February 18, 2025
projectile hematemesis today
Objective Data
-
Labs:
Laboratory Results
02/18/25 02/18/25
03:53 10:10
WBC 6.5
Hgb 6.8 L* D 8.7 L D
Hct 20.1 L* 25.1 L
Plt Count 209
Sodium 139
Potassium 3.7
Chloride 106
Carbon Dioxide 24
BUN 69 H
Creatinine 1.0
Glucose 167 H
Calcium 9.0
Total Bilirubin 0.7
AST 23
ALT 21
Alkaline Phosphatase 62
Vital Signs:
Vital Signs
Temp Pulse Resp BP Pulse Ox
98.6 F 74 14 117/56 100
02/18/25 13:34 02/18/25 13:34 02/18/25 13:34 02/18/25 13:34 02/18/25 13:34
I&O
02/17/25 02/18/25 02/19/25
06:59 06:59 06:59
Intake Total 0 / 0 250 / 250
Output Total 600 / 600 200 / 200
Balance -600 / -600 50 / 50
Review of Systems
-
History Source: Patient
All other systems: Not reviewed unless documented
Data Reviewed
-
Diagnostic Radiology: Report Reviewed by me
Labs: Labs Reviewed by me
--- NOTE | 2025-02-18 14:45 | PTCARENOTE ---
Reported bloody emesis to hospitalist - Pt seen by GI and endoscopy ordered once H&H drawn and reviewed. Pt sent for endoscopy procedure, GI reviewed results with Pt and family. Pt senttled back into room, emotional support provided. Will
continue to monitor and assess.
[2025-02-18 19:24] LABS: Hemoglobin 8.5 g/dL (13.0-18.0)
[2025-02-18] MEDS: NSS 1000 IV (21:24)
--- NOTE | 2025-02-18 22:15 | PTCARENOTE ---
Pt AAOx3, pleasant. Pt son Rey at the bedside at change of shift. Pt NSR on the monitor. 97% on room air. Pt denies any nausea, cramping, or abdominal discomfort at this time. EDUARDA Sutton ordered fluids, IVF infusing. IV protonix cont. Hygiene and
oral care done. SCDs on. Pt ringing call rojas appropriately, call rojas within reach.
[2025-02-19] VITALS (9 sets, daily range): BP systolic 106–132; BP diastolic 41–80; BMI 25.0
[2025-02-19 04:43] LABS: Hematocrit 22.7 % (39.0-52.0); Hemoglobin 7.6 g/dL (13.0-18.0); Mean Corp Hgb Conc. 33.5 g/dL (33.0-37.0); Mean Corpuscular Hgb 30.6 pg (27.0-31.0); Mean Corpuscular Volume 91.5 fL (80.0-94.0); Mean Platelet Volume 10.7 fL (7.4-10.4); Platelet Count 178 10^3/uL (130-400); Red Blood Cell Count 2.48 10^6/uL (4.70-6.10); Red Cell Dist. Width 15.3 % (11.5-14.5)
[2025-02-19 05:06] LABS: ALT (SGPT) 20 U/L (0-50); AST (SGOT) 21 U/L (17-59); Albumin 2.8 g/dl (3.5-5.0); Alkaline Phosphatase 57 U/L (38-126); Blood Urea Nitrogen 53 mg/dl (9-20); Calcium 8.8 mg/dl (8.4-10.2); Carbon Dioxide 32 mmol/L (22-30); Chloride 111 mmol/L (98-107); Estimated Creatinine Clearance 41 ml/min; Glucose 120 mg/dl (70-99); Potassium 3.5 mmol/L (3.5-5.1); Sodium 146 mmol/L (135-145); Total Bilirubin 0.7 mg/dl (0.2-1.3); Total Protein 4.9 g/dl (6.3-8.2); eGFR 58.17
--- NOTE | 2025-02-19 05:50 | W.PN.GI.CBS2 ---
Today's Communication / Plan
-
Please see assessment and plan for details.
Assessment / Plan
-
1. GI bleed: Secondary to gastric fundus/GE junction mass in the setting of Plavix, status post Hemospray, overall doing well. Hemoglobin has slightly drifted down, though hemodynamically stable and no further signs of gross bleeding. Unclear
etiology, given its appearance endoscopically at least from pictures of a GIST tumor is still in the differential versus malignancy. At this point we will continue PPI, start clear liquids, continue to trend hemoglobin and supportive care. Will
check CT scan to help further differentiate etiology. Pending his clinical course would plan repeat EGD with biopsies after Plavix washout, could be Saturday if still inpatient, if continues to do well then possibly as outpatient with close follow-up
pending clinical course.
Subjective
Subjective
Date of Service: February 19, 2025
Patient feeling okay, no episodes overnight, slept well. No vomiting, bowel movements, abdominal pain, chest pain or shortness of breath.
Objective
Data Reviewed
Laboratory Data:
Laboratory Results
02/19/25 04:10
02/19/25 04:10
Laboratory Results
Total Bilirubin 0.7 mg/dl (0.2-1.3) 02/19/25 04:10
AST 21 U/L (17-59) 02/19/25 04:10
ALT 20 U/L (0-50) 02/19/25 04:10
Alkaline Phosphatase 57 U/L (38-126) 02/19/25 04:10
Vital Signs and I&O:
Vital Signs
Temp Pulse Resp BP Pulse Ox
97.6 F 59 13 129/54 97
02/19/25 03:50 02/19/25 04:00 02/19/25 04:00 02/19/25 04:00 02/18/25 22:14
I&O
02/17/25 02/18/25 02/19/25
06:59 06:59 06:59
Intake Total 0 / 0 250 / 250
Output Total 600 / 600 750 / 750
Balance -600 / -600 -500 / -500
Physical Exam
Physical Exam
General: NAD
Abdomen: normal bowel sounds, soft, no tenderness, no masses or bruits, no ascites
[2025-02-19] MEDS: PROTONIX 100 IV ×2 (06:05→17:37)
[2025-02-19] MEDS: OMNIPAQUE 50 ML PO (08:36)
--- NOTE | 2025-02-19 14:15 | W.PN.HOSP.TC ---
Today's Communication/Plan
-
ADAT
PPI
hold plavix
assess hgb and monitor
Assessment / Plan
Assessment / Plan
Physical Exam
General: Well Developed, Well Nourished and No Apparent Distress
HEENT: NormoCephalic, Moist mucous membranes and Atraumatic
Respiratory: Clear
Cardiac: S1/S2 and Regular Rhythm; No Murmur or Rub
GI: Soft, Non Tender, Non Distended and Normal Bowel Sounds; No Organomegaly
Rectal: Deferred by Provider
Musculoskeletal: No Clubbing, No Cyanosis and No Edema
Skin: No Rash
Neuro: Nonfocal/grossly intact
PLAN:
# Upper GI bleeding with orthostatic symptoms
# Symptomatic acute blood loss anemia with orthostatic symptoms
Trend CBC, HgB goal > 7
-Hold Plavix
-Hold antihypertensive medication
- GI consulted
EGD 02/17
- Tortuous esophagus.
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
- Hemostatic spray ( endoclot ) applied.
-Small amount of Hematin (altered
blood/ybkwho-malknn-exzj material) was found in the
gastric body.
- Normal examined duodenum.
- No specimens collected ( patient has been on plavix
and was actively having UGI bleeding on admission )
- ADAT
- continue PPI drip
-hold plavix
- monitor H/H
- repeat EGD with bx after plavix wash out next week
-will get oncology staging work up once UGI bleeding resolves.
#Hypernatremia
-monitor with diet
History of colon cancer status post partial colectomy and radiation
Diverticulosis
Moderate aortic stenosis
Mild to moderate aortic regurgitation
History of hemorrhoids
Essential hypertension
- Hold chlorthalidone
Hyperlipidemia
- Continue statin, Zetia
Osteoarthritis
Carotid atherosclerosis
History of CVA
COPD
- Continue montelukast
- Continue inhalers
Questionable obstructive sleep apnea
Colon cancer status post partial colectomy/radiation
Multinodular goiter
Polymyalgia rheumatica
BPH
- Continue tamsulosin
Eczema
Osteopenia
Prediabetes
Full code
DVT prophylaxis SCDs
ADAT
Anticipated Discharge: 24 - 48 hours
Subjective/Interval History
-
Date of Service: February 19, 2025
CLD, adat
Objective Data
-
Labs:
Laboratory Results
02/19/25 02/19/25 02/19/25
04:10 05:53 13:53
WBC 7.0 Pending Pending
Hgb 7.6 L Pending Pending
Hct 22.7 L Pending Pending
Plt Count 178 Pending Pending
Sodium 146 H
Potassium 3.5
Chloride 111 H
Carbon Dioxide 32 H
BUN 53 H
Creatinine 1.2
Glucose 120 H
Calcium 8.8
Total Bilirubin 0.7
AST 21
ALT 20
Alkaline Phosphatase 57
02/19/25
21:53
WBC Pending
Hgb Pending
Hct Pending
Plt Count Pending
Sodium
Potassium
Chloride
Carbon Dioxide
BUN
Creatinine
Glucose
Calcium
Total Bilirubin
AST
ALT
Alkaline Phosphatase
Vital Signs:
Vital Signs
Temp Pulse Resp BP Pulse Ox
97.6 F 56 16 132/49 97
02/19/25 07:05 02/19/25 06:00 02/19/25 06:00 02/19/25 06:00 02/18/25 22:14
I&O
02/18/25 02/19/25 02/20/25
06:59 06:59 06:59
Intake Total 0 / 0 730 / 730
Output Total 600 / 600 1050 / 1050
Balance -600 / -600 -320 / -320
Review of Systems
-
History Source: Patient
All other systems: Not reviewed unless documented
Data Reviewed
-
Diagnostic Radiology: Report Reviewed by me
Labs: Labs Reviewed by me
[2025-02-19] MEDS: NSS IV (14:27)
[2025-02-19 14:52] LABS: Hematocrit 22.3 % (39.0-52.0); Hemoglobin 7.6 g/dL (13.0-18.0); Mean Corp Hgb Conc. 34.1 g/dL (33.0-37.0); Mean Corpuscular Hgb 30.6 pg (27.0-31.0); Mean Corpuscular Volume 89.9 fL (80.0-94.0); Mean Platelet Volume 10.5 fL (7.4-10.4); Platelet Count 207 10^3/uL (130-400); Red Blood Cell Count 2.48 10^6/uL (4.70-6.10); Red Cell Dist. Width 15.6 % (11.5-14.5); White Blood Cell Count 9.1 10^3/uL (4.8-10.8)
--- NOTE | 2025-02-19 16:48 | CM ---
Patient with Dx Upper GI bleed. Room air. Receiving IVF. Per nurse; weak gait/transfers.
Met with patient yesterday who was sleeping.
Spoke with patient's son Peewee;
the patient resides with his in a 2 story house with 3 SOHAM and chair lift to 2nd floor bedroom.
The patient was independent in ADLs and ambulation without using an assistive device.
He is the caregiver for his .
Son states he and his sister Anette will be staying with the patient after d/c, for about a week.
The patient has no DME, prior VN or SNF.
PCP - Rodrigo Rios
Pharm[facility] - [facility]
Message to Dr Guerrier requesting PT Eval.
Plan follow up after seen by PT.
[2025-02-19 21:11] LABS: Hematocrit 21.3 % (39.0-52.0); Hemoglobin 7.2 g/dL (13.0-18.0); Mean Corp Hgb Conc. 33.8 g/dL (33.0-37.0); Mean Corpuscular Hgb 30.1 pg (27.0-31.0); Mean Corpuscular Volume 89.1 fL (80.0-94.0); Mean Platelet Volume 10.4 fL (7.4-10.4); Platelet Count 207 10^3/uL (130-400); Red Blood Cell Count 2.39 10^6/uL (4.70-6.10); White Blood Cell Count 9.5 10^3/uL (4.8-10.8)
[2025-02-20] VITALS (18 sets, daily range): BP systolic 104–156; BP diastolic 35–116; PULSE 73; O2SAT 98; BMI 25.2
[2025-02-20] MEDS: NSS 1000 IV (01:59)
[2025-02-20] MEDS: PROTONIX 100 IV ×3 (02:35→22:13)
--- NOTE | 2025-02-20 03:09 | PTCARENOTE ---
Pt received at beginning of shift resting in bed. AAOx3. Finished walking halls just prior to beginning of shift. Pt without SOB. Speaking full sentences on RA. POX 95%. VSS. Afebrile. SR/SB on CM rate 50's-60's. IVF's and Protonix gtt continue
infusing as ordered. No BM overnight. Overnight Hgb 7.2. Using urinal at bedside. Rest of assessment as document. Turns self in bed. Call rojas remains within reach. Will continue to monitor.
[2025-02-20 04:15] LABS: Hematocrit 19.6 % (39.0-52.0); Hemoglobin 6.7 g/dL (13.0-18.0); Mean Corp Hgb Conc. 34.2 g/dL (33.0-37.0); Mean Corpuscular Hgb 30.9 pg (27.0-31.0); Mean Corpuscular Volume 90.3 fL (80.0-94.0); Mean Platelet Volume 10.4 fL (7.4-10.4); Platelet Count 147 10^3/uL (130-400); Red Blood Cell Count 2.17 10^6/uL (4.70-6.10); Red Cell Dist. Width 14.9 % (11.5-14.5)
[2025-02-20 04:26] LABS: ALT (SGPT) 19 U/L (0-50); AST (SGOT) 24 U/L (17-59); Albumin 2.8 g/dl (3.5-5.0); Alkaline Phosphatase 65 U/L (38-126); Blood Urea Nitrogen 35 mg/dl (9-20); Calcium 8.5 mg/dl (8.4-10.2); Carbon Dioxide 29 mmol/L (22-30); Chloride 105 mmol/L (98-107); Estimated Creatinine Clearance 49 ml/min; Glucose 100 mg/dl (70-99); Potassium 3.2 mmol/L (3.5-5.1); Sodium 139 mmol/L (135-145); Total Bilirubin 0.7 mg/dl (0.2-1.3); Total Protein 4.8 g/dl (6.3-8.2); eGFR > 60.00
[2025-02-20] MEDS: KCL 40 MEQ PO (05:39)
--- NOTE | 2025-02-20 05:47 | PTCARENOTE ---
Am Hgb 6.7 and K+ 3.2. Pt without BM overnight. No other signs of bleeding. VSS. FACTORY ASSEMBLER TT'd and orders entered for 1 unit PRBCs and KCL 40 PO. Pt received KCL and unit PRBC infusing at this time without s/s of reaction. Pt currently resting
comfortably. Call rojas remains within reach. Will continue to monitor.
--- NOTE | 2025-02-20 07:56 | W.PN.GI.CBS2 ---
Today's Communication / Plan
-
Please see assessment plan for details.
Assessment / Plan
-
1. GI bleed: Secondary to gastric fundus/GE junction mass in the setting of Plavix, status post Hemospray, overall doing okay without further gross bleeding, though hemoglobin did drop again today. Unclear etiology, given its appearance
endoscopically at least from pictures of a GIST tumor is still in the differential versus malignancy. CT scan did not define any clear mass, vague hypodensities in the liver which will need further imaging. Given his drop in hemoglobin we
discussed the possibility of him going home and outpatient workup versus continued observation here and repeat EGD with biopsy after Plavix washout. After discussion he wishes to stay here which is the safer bed given his drop in hemoglobin today.
Will continue liquid diet, PPI, supportive care and transfusion. Plan EGD on Saturday with biopsies, sooner if signs of brisk active bleeding.
Subjective
Subjective
Date of Service: February 20, 2025
Patient doing okay, no nausea or vomiting, tolerated full liquids, no bowel movements overnight, no lightheadedness or dizziness.
Objective
Data Reviewed
Laboratory Data:
Laboratory Results
02/20/25 03:36
02/20/25 03:36
Laboratory Results
Total Bilirubin 0.7 mg/dl (0.2-1.3) 02/20/25 03:36
AST 24 U/L (17-59) 02/20/25 03:36
ALT 19 U/L (0-50) 02/20/25 03:36
Alkaline Phosphatase 65 U/L (38-126) 02/20/25 03:36
Vital Signs and I&O:
Vital Signs
Temp Pulse Resp BP Pulse Ox
98.2 F 56 14 118/49 95
02/20/25 05:35 02/20/25 06:00 02/20/25 06:00 02/20/25 06:00 02/19/25 22:52
I&O
02/19/25 02/20/25 02/21/25
06:59 06:59 06:59
Intake Total 730 / 730 1380 / 1380 250 / 250
Output Total 1050 / 1050 1050 / 1050
Balance -320 / -320 330 / 330 250 / 250
Physical Exam
Physical Exam
General: NAD
Abdomen: normal bowel sounds, soft, no tenderness, no masses or bruits, no ascites
--- NOTE | 2025-02-20 14:56 | W.PN.HOSP.TC ---
Today's Communication/Plan
-
PPI drip
Full liquid diet
Monitor hemoglobin
Potassium repletion
Plavix washout, EGD with biopsies on Saturday
Assessment / Plan
Assessment / Plan
Physical Exam
General: Well Developed, Well Nourished and No Apparent Distress
HEENT: NormoCephalic, Moist mucous membranes and Atraumatic
Respiratory: Clear
Cardiac: S1/S2 and Regular Rhythm; No Murmur or Rub
GI: Soft, Non Tender, Non Distended and Normal Bowel Sounds; No Organomegaly
Rectal: Deferred by Provider
Musculoskeletal: No Clubbing, No Cyanosis and No Edema
Skin: No Rash
Neuro: Nonfocal/grossly intact
PLAN:
# Upper GI bleeding with orthostatic symptoms
# Symptomatic acute blood loss anemia with orthostatic symptoms
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
Trend CBC, HgB goal > 7
� Transfuse 1 PRBC 5/10
-Hold Plavix
-Hold antihypertensive medication
- GI consulted
-Continue full liquid diet, PPI
� Plan for EGD on Saturday with biopsies after plavix washout
-will get oncology staging work up once UGI bleeding resolves.
#Hypokalemia
� Monitor and replete
#Hypernatremia
-monitor with diet
History of colon cancer status post partial colectomy and radiation
Diverticulosis
Moderate aortic stenosis
Mild to moderate aortic regurgitation
History of hemorrhoids
Essential hypertension
- Hold chlorthalidone
Hyperlipidemia
- Continue statin, Zetia
Osteoarthritis
Carotid atherosclerosis
History of CVA
COPD
- Continue montelukast
- Continue inhalers
Questionable obstructive sleep apnea
Colon cancer status post partial colectomy/radiation
Multinodular goiter
Polymyalgia rheumatica
BPH
- Continue tamsulosin
Eczema
Osteopenia
Prediabetes
Full code
DVT prophylaxis SCDs
ADAT
Anticipated Discharge: > 48 hours
Subjective/Interval History
-
Date of Service: February 20, 2025
No acute events although had hemoglobin drop
Objective Data
-
Labs:
Laboratory Results
02/20/25
03:36
WBC 6.0
Hgb 6.7 L*
Hct 19.6 L*
Plt Count 147 D
Sodium 139
Potassium 3.2 L
Chloride 105
Carbon Dioxide 29
BUN 35 H
Creatinine 1.0
Glucose 100 H
Calcium 8.5
Total Bilirubin 0.7
AST 24
ALT 19
Alkaline Phosphatase 65
Vital Signs:
Vital Signs
Temp Pulse Resp BP Pulse Ox
98.4 F 71 19 116/53 97
02/20/25 07:50 02/20/25 12:02 02/20/25 12:02 02/20/25 10:00 02/20/25 08:00
I&O
02/19/25 02/20/25 02/21/25
06:59 06:59 06:59
Intake Total 730 / 730 1380 / 1380 250 / 250
Output Total 1050 / 1050 1050 / 1050
Balance -320 / -320 330 / 330 250 / 250
Review of Systems
-
History Source: Patient
All other systems: Not reviewed unless documented
Data Reviewed
-
Diagnostic Radiology: Report Reviewed by me
Labs: Labs Reviewed by me
--- NOTE | 2025-02-20 15:00 | PTCARENOTE ---
Patient AAOx3, no complaints. No BMs today. Repeat Hgb improved to 8.3. VSS. Up in chair majority of day. Patient making needs known. Will closely monitor.
[2025-02-20 16:43] LABS: Hemoglobin 8.3 g/dL (13.0-18.0)
[2025-02-21] VITALS (13 sets, daily range): BP systolic 102–140; BP diastolic 44–75
[2025-02-21 03:54] LABS: Hematocrit 22.1 % (39.0-52.0); Hemoglobin 7.6 g/dL (13.0-18.0); Mean Corp Hgb Conc. 34.4 g/dL (33.0-37.0); Mean Corpuscular Hgb 30.3 pg (27.0-31.0); Mean Platelet Volume 10.6 fL (7.4-10.4); Platelet Count 173 10^3/uL (130-400); Red Blood Cell Count 2.51 10^6/uL (4.70-6.10); Red Cell Dist. Width 14.5 % (11.5-14.5); White Blood Cell Count 5.7 10^3/uL (4.8-10.8)
[2025-02-21 04:48] LABS: ALT (SGPT) 19 U/L (0-50); AST (SGOT) 27 U/L (17-59); Albumin 2.8 g/dl (3.5-5.0); Alkaline Phosphatase 77 U/L (38-126); Blood Urea Nitrogen 20 mg/dl (9-20); Calcium 8.9 mg/dl (8.4-10.2); Carbon Dioxide 27 mmol/L (22-30); Chloride 107 mmol/L (98-107); Estimated Creatinine Clearance 55 ml/min; Glucose 104 mg/dl (70-99); Potassium 3.7 mmol/L (3.5-5.1); Sodium 137 mmol/L (135-145); Total Protein 4.9 g/dl (6.3-8.2); eGFR > 60.00
--- NOTE | 2025-02-21 07:21 | W.PN.GI.CBS2 ---
Today's Communication / Plan
-
Please see assessment and plan for details.
Assessment / Plan
-
1. GI bleed: Secondary to gastric fundus/GE junction mass in the setting of Plavix, status post Hemospray, overall doing okay without further gross bleeding, responded appropriately to transfusion, received 2 units total. At this point we will
plan repeat EGD tomorrow after Plavix washout to reassess and biopsy. CT scan without distinct mass, vague hypodensities in the liver which will likely need further imaging pending biopsy results.
Subjective
Subjective
Date of Service: February 21, 2025
Patient feeling okay, 1 small dark bowel movement, no abdominal pain, nausea or vomiting, tolerating full liquid diet without difficulty.
Objective
Data Reviewed
Laboratory Data:
Laboratory Results
02/21/25 03:35
02/21/25 03:35
Laboratory Results
Total Bilirubin 1.0 mg/dl (0.2-1.3) 02/21/25 03:35
AST 27 U/L (17-59) 02/21/25 03:35
ALT 19 U/L (0-50) 02/21/25 03:35
Alkaline Phosphatase 77 U/L (38-126) 02/21/25 03:35
Vital Signs and I&O:
Vital Signs
Temp Pulse Resp BP Pulse Ox
98.3 F 57 22 105/62 98
02/21/25 03:00 02/21/25 06:00 02/21/25 06:00 02/21/25 06:00 02/21/25 06:00
I&O
02/20/25 02/21/25 02/22/25
06:59 06:59 06:59
Intake Total 1380 / 1380 670 / 670
Output Total 1050 / 1050 1150 / 1150
Balance 330 / 330 -480 / -480
Physical Exam
Physical Exam
General: NAD
Abdomen: normal bowel sounds, soft, no tenderness, no masses or bruits, no ascites
[2025-02-21] MEDS: PROTONIX 100 IV ×2 (09:00→18:42)
--- NOTE | 2025-02-21 14:24 | W.PN.HOSP.TC ---
Today's Communication/Plan
-
PPI ggt
FLD, NPO after MN
Bx tomorrow
Assessment / Plan
Assessment / Plan
Physical Exam
General: Well Developed, Well Nourished and No Apparent Distress
HEENT: NormoCephalic, Moist mucous membranes and Atraumatic
Respiratory: Clear
Cardiac: S1/S2 and Regular Rhythm; No Murmur or Rub
GI: Soft, Non Tender, Non Distended and Normal Bowel Sounds; No Organomegaly
Rectal: Deferred by Provider
Musculoskeletal: No Clubbing, No Cyanosis and No Edema
Skin: No Rash
Neuro: Nonfocal/grossly intact
PLAN:
# Upper GI bleeding with orthostatic symptoms
# Symptomatic acute blood loss anemia with orthostatic symptoms
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
Trend CBC, HgB goal > 7
� Transfuse 1 PRBC 5/10
-Hold Plavix
-Hold antihypertensive medication
- GI consulted
-Continue full liquid diet, PPI
� Plan for EGD on Saturday with biopsies after plavix washout
-will get oncology staging work up once UGI bleeding resolves.
#Hypokalemia
� Monitor and replete
#Hypernatremia, resolved
-monitor with diet
History of colon cancer status post partial colectomy and radiation
Diverticulosis
Moderate aortic stenosis
Mild to moderate aortic regurgitation
History of hemorrhoids
Essential hypertension
- Hold chlorthalidone
Hyperlipidemia
- Continue statin, Zetia
Osteoarthritis
Carotid atherosclerosis
History of CVA
COPD
- Continue montelukast
- Continue inhalers
Questionable obstructive sleep apnea
Colon cancer status post partial colectomy/radiation
Multinodular goiter
Polymyalgia rheumatica
BPH
- Continue tamsulosin
Eczema
Osteopenia
Prediabetes
Full code
DVT prophylaxis SCDs
Anticipated Discharge: 24 - 48 hours
Subjective/Interval History
-
Date of Service: February 21, 2025
no acute events
Objective Data
-
Labs:
Laboratory Results
02/21/25
03:35
WBC 5.7
Hgb 7.6 L
Hct 22.1 L
Plt Count 173
Sodium 137
Potassium 3.7
Chloride 107
Carbon Dioxide 27
BUN 20
Creatinine 0.9
Glucose 104 H
Calcium 8.9
Total Bilirubin 1.0
AST 27
ALT 19
Alkaline Phosphatase 77
Vital Signs:
Vital Signs
Temp Pulse Resp BP Pulse Ox
98.0 F 57 22 105/62 98
02/21/25 11:35 02/21/25 06:00 02/21/25 06:00 02/21/25 06:00 02/21/25 06:00
I&O
02/20/25 02/21/25 02/22/25
06:59 06:59 06:59
Intake Total 1380 / 1380 670 / 670
Output Total 1050 / 1050 1150 / 1150
Balance 330 / 330 -480 / -480
Review of Systems
-
History Source: Patient
All other systems: Not reviewed unless documented
Data Reviewed
-
Diagnostic Radiology: Report Reviewed by me
Labs: Labs Reviewed by me
--- NOTE | 2025-02-21 17:31 | PTCARENOTE ---
Assumed care of Pt at change of shift; AAO x 3; NSR on monitor; Denies pain; OOB x 1 min assist. No complaints. Will continue to monitor and assess.
--- NOTE | 2025-02-21 20:10 | PTCARENOTE ---
cannot verify vitals before 1900.
--- NOTE | 2025-02-21 23:22 | PTCARENOTE ---
assumed care of patient. pt is AAOx3, able to make needs known. VSS. 97% RA. pt aware he is NPO at midnight for EGD in AM. able to walk to bathroom without issues. IV PPI gtt infusing. no complaints of pain or SOB. care ongoing.
[2025-02-22] VITALS (15 sets, daily range): BP systolic 19–140; BP diastolic 47–77
[2025-02-22 03:33] LABS: Hematocrit 21.9 % (39.0-52.0); Hemoglobin 7.7 g/dL (13.0-18.0); Mean Corp Hgb Conc. 35.2 g/dL (33.0-37.0); Mean Corpuscular Hgb 30.9 pg (27.0-31.0); Mean Platelet Volume 10.6 fL (7.4-10.4); Platelet Count 182 10^3/uL (130-400); Red Blood Cell Count 2.49 10^6/uL (4.70-6.10); Red Cell Dist. Width 14.2 % (11.5-14.5); White Blood Cell Count 6.3 10^3/uL (4.8-10.8)
[2025-02-22 04:00] LABS: Blood Urea Nitrogen 14 mg/dl (9-20); Calcium 8.8 mg/dl (8.4-10.2); Carbon Dioxide 28 mmol/L (22-30); Chloride 107 mmol/L (98-107); Estimated Creatinine Clearance 55 ml/min; Glucose 105 mg/dl (70-99); Potassium 4.2 mmol/L (3.5-5.1); Sodium 137 mmol/L (135-145); eGFR > 60.00
[2025-02-22] MEDS: PROTONIX 100 IV (04:49)
--- NOTE | 2025-02-22 13:15 | W.PN.HOSP.TC ---
Today's Communication/Plan
-
see plan
Assessment / Plan
Assessment / Plan
Gen: NAD, AAOx3.
Eyes: EOMI, PERRLA, no scleral icterus.
Neck: supple.
CV: RRR, +S1/S2, 3/6 KAITLYNN
Resp: CTAB, no rales, wheezes, or rhonchi.
Abd: +BS, soft, NT, ND
Skin: No rashes.
Neuro: CN 2-12 intact, non-focal.
Psych: Normal mood and affect.
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 No signs of bleeding now. Biopsied. Normal examined duodenum.
Acute blood loss anemia due to UGIB:
-due to GEJ tumor exacerbated by Plavix
-EGD above, follow path
-cont PPI
-s/p 2U pRBCs
-trend Hb
-advanced to LR diet
Other problems:
Hypokalemia, resolved
Hypernatremia, resolved
h/o colon CA s/p partial colectomy and XRT
mod , mild-mod AR
Essential hypertension: holding home chlorthalidone
Hyperlipidemia: Restart statin/Zetia
Osteoarthritis
Carotid atherosclerosis
h/o CVA: holding plavix
COPD: restart montelukast
Possible THOMAS
PMR
BPH: cont Flomax
Prediabetes
FULL/SCDs
Transfer to [place]
Anticipated Discharge: Within 24 hours
Subjective/Interval History
-
Date of Service: February 22, 2025
Denies CP/SOB/abd pain.
Objective Data
-
Labs:
Laboratory Results
02/22/25
03:23
WBC 6.3
Hgb 7.7 L
Hct 21.9 L
Plt Count 182
Sodium 137
Potassium 4.2
Chloride 107
Carbon Dioxide 28
BUN 14
Creatinine 0.9
Glucose 105 H
Calcium 8.8
Vital Signs:
Vital Signs
Temp Pulse Resp BP Pulse Ox
98.3 F 66 21 111/47 98
02/22/25 06:38 02/22/25 10:00 02/22/25 10:00 02/22/25 10:00 02/22/25 10:00
I&O
02/21/25 02/22/25 02/23/25
06:59 06:59 06:59
Intake Total 670 / 670 480 / 480
Output Total 1150 / 1150 900 / 900
Balance -480 / -480 -420 / -420
--- NOTE | 2025-02-22 16:33 | VATNOTE ---
Upon initial assessment, pt c/o itchiness in R arm. No IVs in that arm at time of complaint. Pt did have an IV in that arm that infiltrated earlier in admission. Arm is red, swollen, and warm. PCN made aware. IV pulled from L arm; area was swollen
and ecchymotic. Some yellowish drainage noted at insertion site. PCN made aware of that site as well. Pt not getting anything through IV at time of assessment. Will continue to monitor.
--- NOTE | 2025-02-22 17:05 | PTCARENOTE ---
IV team called nurse into room to look at patients right arm. Right forearm is red, firm and warm to touch. Discussed with Dr. Parrish. New orders obtained.
[2025-02-22] MEDS: LIPITOR 40 MG PO (17:32)
[2025-02-22] MEDS: SINGULAIR 10 MG PO (17:32)
[2025-02-22] MEDS: ANCEF 10 IV (17:57)
--- NOTE | 2025-02-22 17:58 | PTCARENOTE ---
IV team removed left upper arm IV site and observed yellow drainage from site along with redness around site. Notified Dr. Parrish. IV antibiotics ordered.
[2025-02-22] MEDS: SYMBICORT 160/4.5 MCG INHALER 2 PUFF INH (19:42)
[2025-02-22] MEDS: PROTONIX 40 MG PO (20:20)
[2025-02-22] MEDS: ZETIA 10 MG PO (20:20)
[2025-02-22] MEDS: FLOMAX 0.8 MG PO (20:21)
--- NOTE | 2025-02-22 22:55 | PTCARENOTE ---
assumed care of patient. pt is AAOx3, able to make needs known. VSS. now m/s level of care. 98% RA. pt bladder scanned at start of shift. urinated 50ml, scanned for 183ml. left upper arm old IV site draining pus like fluid. arm cleaned and foam
applied over site. right arm red and warm to touch. able to take pills whole without issues. care ongoing.
[2025-02-23] VITALS (17 sets, daily range): BP systolic 111–141; BP diastolic 50–67
[2025-02-23] MEDS: ANCEF 10 IV ×3 (02:03→18:44)
[2025-02-23 06:21] LABS: Hematocrit 21.5 % (39.0-52.0); Hemoglobin 7.2 g/dL (13.0-18.0); Mean Corp Hgb Conc. 33.5 g/dL (33.0-37.0); Mean Corpuscular Hgb 29.8 pg (27.0-31.0); Mean Corpuscular Volume 88.8 fL (80.0-94.0); Mean Platelet Volume 10.6 fL (7.4-10.4); Platelet Count 192 10^3/uL (130-400); Red Blood Cell Count 2.42 10^6/uL (4.70-6.10); Red Cell Dist. Width 14.2 % (11.5-14.5); White Blood Cell Count 6.1 10^3/uL (4.8-10.8)
[2025-02-23 06:45] LABS: Blood Urea Nitrogen 17 mg/dl (9-20); Calcium 8.5 mg/dl (8.4-10.2); Carbon Dioxide 28 mmol/L (22-30); Chloride 109 mmol/L (98-107); Estimated Creatinine Clearance 55 ml/min; Glucose 111 mg/dl (70-99); Sodium 137 mmol/L (135-145); eGFR > 60.00
[2025-02-23] MEDS: SYMBICORT 160/4.5 MCG INHALER 2 PUFF INH ×2 (07:15→19:42)
--- NOTE | 2025-02-23 08:09 | PTCARENOTE ---
Patients right arm appears less reddened this morning. Left arm old IV site has scant yellow drainage. Temperature [address] Parrish.
--- NOTE | 2025-02-23 08:46 | W.PN.GI.CBS2 ---
Today's Communication / Plan
-
OK for d/c
Our office will contact pt with bx results
If it confirms esophageal cancer, then refer to Oncology. Will also likely need MRI to further delineate liver lesions
F/U with Dr Isbell- contact placed in d/c instructions
Will sign off.
Assessment / Plan
-
1. GI bleed: Secondary to gastric fundus/GE junction mass in the setting of Plavix, status post Hemospray, overall doing okay without further gross bleeding, responded appropriately to transfusion, received 2 units total. s/p repeat EGD and bx of
mass yesterday. CT scan without distinct mass, vague hypodensities in the liver which will likely need further imaging pending biopsy results.
Subjective
Subjective
Date of Service: February 23, 2025
No complaints. Tolerated breakfast. No vomiting. No hematemesis
Objective
Data Reviewed
Laboratory Data:
Laboratory Results
02/23/25 06:06
02/23/25 06:06
Laboratory Results
Total Bilirubin 1.0 mg/dl (0.2-1.3) 02/21/25 03:35
AST 27 U/L (17-59) 02/21/25 03:35
ALT 19 U/L (0-50) 02/21/25 03:35
Alkaline Phosphatase 77 U/L (38-126) 02/21/25 03:35
Vital Signs and I&O:
Vital Signs
Temp Pulse Resp BP Pulse Ox
99 F 70 16 113/57 99
02/23/25 07:36 02/23/25 07:36 02/23/25 07:36 02/23/25 07:36 02/23/25 07:36
I&O
02/22/25 02/23/25 02/24/25
06:59 06:59 06:59
Intake Total 480 / 480 340 / 340
Output Total 900 / 900 975 / 975 125 / 125
Balance -420 / -420 -635 / -635 -125 / -125
Physical Exam
Physical Exam
GI: Soft, Non Distended and Non Tender
[2025-02-23] MEDS: PROTONIX 40 MG PO ×2 (09:08→20:50)
--- NOTE | 2025-02-23 11:40 | W.PN.HOSP.TC ---
Today's Communication/Plan
-
see plan
Assessment / Plan
Assessment / Plan
Gen: NAD, AAOx3.
Eyes: EOMI, PERRLA, no scleral icterus.
Neck: supple.
CV: remains RRR, +S1/S2, 3/6 KAITLYNN
Resp: remains CTAB, no rales, wheezes, or rhonchi.
Abd: +BS, soft, NT, ND
Skin: cellulitis on both UEs. LUE with induration but no fluctuance, scant serous drainage. RUE with area of thrombophlebitis.
Neuro: CN 2-12 intact, non-focal.
Psych: Normal mood and affect.
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 No signs of bleeding now. Biopsied. Normal examined duodenum.
Acute blood loss anemia due to UGIB:
-due to GEJ tumor exacerbated by Plavix
-EGD above, follow path
-cont PPI
-s/p 2U pRBCs, transfuse 1U pRBCs today
-advanced to LR diet
Acute B/L UE cellulitis:
-cont Ancef
Other problems:
Hypokalemia, resolved
Hypernatremia, resolved
h/o colon CA s/p partial colectomy and XRT
mod , mild-mod AR
Essential hypertension: holding home chlorthalidone
Hyperlipidemia: Restart statin/Zetia
Osteoarthritis
Carotid atherosclerosis
h/o CVA: holding plavix
COPD: restart montelukast
Possible THOMAS
PMR
BPH: cont Flomax
Prediabetes
FULL/SCDs
Anticipated Discharge: 24 - 48 hours
Subjective/Interval History
-
Date of Service: February 23, 2025
Dizzy today with ambulation. Reports some SOB.
Objective Data
-
Labs:
Laboratory Results
02/23/25
06:06
WBC 6.1
Hgb 7.2 L
Hct 21.5 L
Plt Count 192
Sodium 137
Potassium 4.0
Chloride 109 H
Carbon Dioxide 28
BUN 17
Creatinine 0.9
Glucose 111 H
Calcium 8.5
Vital Signs:
Vital Signs
Temp Pulse Resp BP Pulse Ox
99 F 70 16 130/67 99
02/23/25 07:36 02/23/25 07:36 02/23/25 07:36 02/23/25 10:15 02/23/25 07:36
I&O
02/22/25 02/23/25 02/24/25
06:59 06:59 06:59
Intake Total 480 / 480 340 / 340
Output Total 900 / 900 975 / 975 125 / 125
Balance -420 / -420 -635 / -635 -125 / -125
--- NOTE | 2025-02-23 12:02 | PTCARENOTE ---
Patient had an episode of dizziness with walking this morning. Notified Dr. Parrish. One unit of PRBCs ordered. Patient educated about fall precautions. Compliant with plan of care.
--- NOTE | 2025-02-23 12:25 | CM ---
Patient with Dx Upper GI bleed, Acute B/L UE cellulitis. One unit of PRBCs ordered. Room air. Receiving IV Abx. PT 02/20; no skilled PT needed. New PT/OT orders 02/23.
Met with patient and daughter Sarita, here visiting from [place]/staying with ;
the patient reports that he has had a setback in his mobility. He states he has new numbness in his feet overnight, and was unsteady on his feet today. Patient says he has discussed this already with Dr Parrish. Nurse Vy also aware. Advised
patient and daughter that CM will ask PT to work with him again ---> message to Sherry PT hoping she can see him tomorrow if stable for mobility.
Patient and daughter Sarita agree to for SN/PT and they choose [facility].
Referral to [facility] Liaison.
Plan follow up after seen by PT/OT.
Plan home with [facility].
--- NOTE | 2025-02-23 15:38 | VNURNOTE ---
Home Health Liaison met with patient at bedside to discuss [facility] nurse/therapy, visits, schedule and homebound status. Patient is agreeable and understands that visits at home will be 2-3 x per week to assess and teach medical management. Patient is
aware that [facility] will contact them for start of care in 1-2 days after discharge from .
[facility] referral completed in [facility].
--- NOTE | 2025-02-23 17:16 | VATNOTE ---
Assessed right & left arm cellulitis's now. Right arm is approx +3 edema and redder than left arm. Marked area that is a circular black pustule of somesorth that pt. and pt.s son say is new today. Pt. states right arm is very tender and sore. Entire
forearm red, skin tight, warm to touch. This VAT RN applied ice jazmyn and elevated right forearm with folded blanket. Left arm is not as swollen however entire forearm is red and warm to touch with a +2 edema. Pt states left arm does not hurt as much
as right. Left arm elevated with folded blanket and ice applied. Area that had Optifoam on it removed, cleaned with chlorhexidine and reapplied small optifoam. Just a scant yellow/clear dot on Optifoam that had been applied by Vy JOHNSON. Noted pt
now on Ancef; aware per reports. VAT to follow.
[2025-02-23] MEDS: SINGULAIR 10 MG PO (18:20)
[2025-02-23] MEDS: LIPITOR 40 MG PO (18:20)
--- NOTE | 2025-02-23 19:05 | PTCARENOTE ---
Patient complaining of 'numb legs' intermittently. Discussed with Dr. Parrish.
[2025-02-23] MEDS: ZETIA 10 MG PO (20:50)
[2025-02-23] MEDS: FLOMAX 0.8 MG PO (20:50)
--- NOTE | 2025-02-24 01:41 | PTCARENOTE ---
assumed care of patient. pt is AAOx3, CAHUILLA. able to make needs known. VSS. m/s level of care. 99% RA. x1 assist in the room. swelling to bilateral arms noted. left greater than right. pt with some complaints of numbness to bilateral feet. no
dizziness noted. care ongoing.
[2025-02-24] MEDS: ANCEF 10 IV (02:36)
[2025-02-24 06:06] LABS: Hematocrit 23.5 % (39.0-52.0); Hemoglobin 7.9 g/dL (13.0-18.0); Mean Corp Hgb Conc. 33.6 g/dL (33.0-37.0); Mean Corpuscular Hgb 28.9 pg (27.0-31.0); Mean Corpuscular Volume 86.1 fL (80.0-94.0); Mean Platelet Volume 10.4 fL (7.4-10.4); Platelet Count 189 10^3/uL (130-400); Red Blood Cell Count 2.73 10^6/uL (4.70-6.10); Red Cell Dist. Width 14.2 % (11.5-14.5); White Blood Cell Count 5.8 10^3/uL (4.8-10.8)
[2025-02-24 06:29] LABS: Blood Urea Nitrogen 17 mg/dl (9-20); Calcium 8.6 mg/dl (8.4-10.2); Carbon Dioxide 25 mmol/L (22-30); Chloride 107 mmol/L (98-107); Estimated Creatinine Clearance 54 ml/min; Glucose 101 mg/dl (70-99); Potassium 4.1 mmol/L (3.5-5.1); Sodium 137 mmol/L (135-145); eGFR > 60.00
[2025-02-24] MEDS: SYMBICORT 160/4.5 MCG INHALER 2 PUFF INH ×2 (07:12→20:38)
[2025-02-24] MEDS: PROTONIX 40 MG PO ×2 (07:34→20:52)
--- NOTE | 2025-02-24 07:53 | CON.ONC ---
Impression
Impression
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
Plan
Plan
� Continue to progress diet as tolerated
� Continue PPI and other prophylaxis per GI recommendations
� Continue to follow pathology results
� Continue to monitor hemoglobin and transfuse as needed
� Continue all other medical care per primary medical team
Patient History
History of Present Illness
89-year-old male with past medical history of hypertension, hyperlipidemia, OA, carotid atherosclerosis, aortic stenosis, aortic regurgitation, CVA, COPD, diverticulosis, colon cancer status post partial colectomy and radiation, BPH who presented to
[facility] with black stools on 02/17. At time of admission, patient was on Plavix, thus concern for exacerbation of bleed at gastric fundus/GE junction due to anticoagulation was present. Patient has received 2 units of blood during stay
and underwent repeat EGD yesterday on 02/23. EGD showed new mass of GE junction and biopsy was taken during EGD yesterday. CT scan showed vague hypodensities in the liver, pending further workup after biopsy results.
Overnight he reports no acute events. He states that he is tolerating current progression well. He reports no headaches, nausea, vomiting, chest pain, shortness of breath, numbness or tingling extremities. He states that he has not been having
regular bowel movements, last small movement was 2 days ago.
Past-Medical/Surgical History
Colectomy
Patient Medication
�Medication �Instructions �Recorded �Confirmed �Last Taken �Type
ezetimibe 10 mg tablet 10 mg PO HS Mental Health/Anxiety 04/28/20 02/18/25 07/28/23 History
montelukast 10 mg tablet 10 mg PO QPM Lung/breathing issues 04/28/20 02/18/25 07/28/23 History
tamsulosin 0.4 mg capsule 0.8 mg PO HS Urinary issue 04/28/20 02/18/25 07/21/23 History
cetirizine 10 mg tablet (Zyrtec) 10 mg PO DAILY PRN allergies 07/03/23 02/18/25 04/13/23 History
albuterol sulfate 90 mcg/actuation 2 puff inhalation Q6H PRN SOB 07/09/23 02/18/25 07/14/23 History
aerosol inhaler
fluticasone propionate 50 2 spray intranasal DAILY 07/09/23 02/18/25 07/21/23 History
mcg/actuation nasal
spray,suspension
chlorthalidone 25 mg tablet 25 mg PO DAILY #30 tabs 07/29/23 02/18/25 07/22/23 Rx
potassium chloride 20 mEq 20 meq PO DAILY Supplement #0 tabs 07/29/23 02/18/25 07/28/23 Rx
tablet,extended
release(part/cryst) (Klor-Con M)
atorvastatin 80 mg tablet 40 mg PO QPM 02/18/25 02/18/25 Unknown History
budesonide-formoterol HFA 160 2 puff inhalation R BID 02/18/25 02/18/25 Unknown History
mcg-4.5 mcg/actuation aerosol
inhaler (Symbicort)
clopidogrel 75 mg tablet 75 mg PO DAILY 02/18/25 02/18/25 Unknown History
Active Medications
Generic Name Dose Route Start Last Admin
Trade Name Freq PRN Reason Stop Dose Admin
Albuterol 2 puff 02/22/25 13:20
Albuterol Hfa [90 Mcg/Dose] Inhaler INH
R Q6HPRN PRN
SOB
Protocol
Atorvastatin Calcium 40 mg 02/22/25 18:00 02/23/25 18:20
Atorvastatin (Lipitor) 40 Mg Tablet PO 03/22/25 17:59 40 mg
QPM KATRIN Administration
Budesonide/Formoterol Fumarate 2 puff 02/22/25 20:00 02/24/25 07:12
Symbicort Inhaler 160/4.5 INH 03/22/25 19:59 2 puff
R BID KATRIN Administration
Protocol
Cetirizine HCl 10 mg 02/22/25 13:20
Cetirizine Hcl 10 Mg Tablet PO 03/22/25 13:19
DAILY PRN
allergies
Ezetimibe 10 mg 02/22/25 22:00 02/23/25 20:50
Ezetimibe (Zetia) 10 Mg Tablet PO 03/22/25 21:59 10 mg
HS KATRIN Administration
Cefazolin Sodium 2 grams in 10 mls @ 120 mls/hr 02/22/25 18:00 02/24/25 02:36
Ancef IV 10 mls
Q8H KATRIN Administration
Montelukast Sodium 10 mg 02/22/25 18:00 02/23/25 18:20
Montelukast Sodium 10 Mg Tablet PO 03/22/25 17:59 10 mg
QPM KATRIN Administration
Pantoprazole Sodium 40 mg 02/22/25 20:00 02/24/25 07:34
Pantoprazole 40 Mg Delayed Release Tablet PO 03/22/25 19:59 40 mg
BID KATRIN Administration
Polyethylene Glycol 17 grams 02/18/25 00:09
Polyethylene Glycol Powder 17 Grams Packet PO 03/18/25 00:08
DAILYPRN PRN
constipation
Sodium Chloride 0 flush 02/17/25 23:00
Sodium Chloride 0.9% (Flush) Syringe IV 03/17/25 22:59
PER PROTOCOL KATRIN
Tamsulosin HCl 0.8 mg 02/22/25 22:00 02/23/25 20:50
Tamsulosin 0.4 Mg Capsule PO 03/22/25 21:59 0.8 mg
HS KATRIN Administration
Review of Systems
-
History Source: Patient
Constitutional: Reports No Symptoms
EENT: Reports No Symptoms
Respiratory: Reports No Symptoms
Cardiac: Reports No Symptoms
GI: Reports Constipated
: Reports No Symptoms
Musculoskeletal: Reports No Symptoms
Neuro: Reports No Symptoms
Psych: Reports No Symptoms
Physical Exam
-
General: No Apparent Distress, Comfortable and Conversant
GI: Soft and Distended
Musculoskeletal: No Clubbing, No Cyanosis and No Edema
Extremities: Pulses Present
Skin: Warm and Dry
Psych: Calm
Labs
Lab Results
WBC 5.8 10^3/uL (4.8-10.8) 02/24/25 05:49
RBC 2.73 10^6/uL (4.70-6.10) L 02/24/25 05:49
Hgb 7.9 g/dL (13.0-18.0) L 02/24/25 05:49
Hct 23.5 % (39.0-52.0) L 02/24/25 05:49
MCV 86.1 fL (80.0-94.0) 02/24/25 05:49
MCH 28.9 pg (27.0-31.0) 02/24/25 05:49
MCHC 33.6 g/dL (33.0-37.0) 02/24/25 05:49
RDW 14.2 % (11.5-14.5) 02/24/25 05:49
Plt Count 189 10^3/uL (130-400) 02/24/25 05:49
MPV 10.4 fL (7.4-10.4) 02/24/25 05:49
Abs Immat Gran (auto) 0.0 10^3/uL (0-0.05) 02/18/25 03:53
Absolute Neuts (auto) 4.3 10^3/uL (1.4-6.5) 02/18/25 03:53
Absolute Lymphs (auto) 1.5 10^3/uL (1.2-3.4) 02/18/25 03:53
Absolute Monos (auto) 0.5 10^3/uL (0.1-0.6) 02/18/25 03:53
Absolute Eos (auto) 0.0 10^3/uL (0-0.7) 02/18/25 03:53
Absolute Basos (auto) 0.0 10^3/uL (0-0.2) 02/18/25 03:53
Immature Gran % 0.3 % (0-0.5) 02/18/25 03:53
Neutrophils % 66.3 % (42.2-75.2) 02/18/25 03:53
Lymphocytes % 24.6 % (20.5-51.1) 02/18/25 03:53
Monocytes % 8.2 % (1.7-9.3) 02/18/25 03:53
Eosinophils % 0.3 % (0-6) 02/18/25 03:53
Basophils % 0.3 % (0-2) 02/18/25 03:53
Creatinine 0.9 mg/dL (0.7-1.3) 02/24/25 05:49
Vital Signs
Vital Signs
Temp Pulse Resp BP Pulse Ox
98.9 F 82 18 123/61 96
02/23/25 23:05 02/24/25 07:15 02/24/25 07:15 02/23/25 23:05 02/24/25 07:15
--- NOTE | 2025-02-24 08:10 | W.PN.HOSP.TC ---
Today's Communication/Plan
-
see bold/plan
Assessment / Plan
Assessment / Plan
Gen: NAD, AAOx3.
Eyes: EOMI, PERRLA, no scleral icterus.
Neck: supple.
CV: remains RRR, +S1/S2, 3/6 KAITLYNN
Resp: remains CTAB, no rales, wheezes, or rhonchi.
Abd: +BS, soft, NT, ND
Skin: cellulitis on both UEs. LUE with induration but no fluctuance. RUE with area of thrombophlebitis.
Neuro: CN 2-12 intact, non-focal.
Psych: Normal mood and affect.
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 No signs of bleeding now. Biopsied. Normal examined duodenum.
Acute blood loss anemia due to UGIB:
-due to GEJ tumor exacerbated by Plavix
-EGD above, path with invasive adenocarcinoma, well to moderately differentiated
-c/s ONC as the request of Dr. Stevens. Discussed with Dr. Zambrano.
-cont PPI
-s/p 3U pRBCs
-advanced to LR diet
Acute B/L UE cellulitis:
-pt has been on Ancef for 2 days. This AM the patient states he has had warm towels on his arms overnight which likely has increased his hyperemia/erythema.
-switch antibiotics to IV vancomycin
-c/s ID
-check venous U/S B/L UEs
Other problems:
Hypokalemia, resolved
Hypernatremia, resolved
h/o colon CA s/p partial colectomy and XRT
mod , mild-mod AR
Essential hypertension: holding home chlorthalidone
Hyperlipidemia: cont statin/Zetia
Osteoarthritis
Carotid atherosclerosis
h/o CVA: can restart plavix one week post-EGD as per discussion with Dr. Stevens
COPD: restart montelukast
Possible THOMAS
PMR
BPH: cont Flomax
Prediabetes
Patient's daughter updated extensively at bedside. Specifically, she is requested that his hemoglobin be normal. I explained that as long as his hemoglobin is stable and above 7 that we will not transfuse him to obtaining a hemoglobin in the
normal range.
FULL/SCDs
Total time spent on today's encounter was 50 minutes which included time spent in counseling the patient/family regarding diagnosis and treatment plan as listed above, goals of care, and symptom management. Case was discussed with nursing staff,
specialists, and care coordinators/case management. All labs and imaging personally reviewed by me. Remainder the time spent in detailed review of previous records, lab data, imaging, and other medical provider documentation.
Anticipated Discharge: Within 24 hours
Subjective/Interval History
-
Date of Service: February 24, 2025
Objective Data
-
Labs:
Laboratory Results
02/24/25
05:49
WBC 5.8
Hgb 7.9 L
Hct 23.5 L
Plt Count 189
Sodium 137
Potassium 4.1
Chloride 107
Carbon Dioxide 25
BUN 17
Creatinine 0.9
Glucose 101 H
Calcium 8.6
Vital Signs:
Vital Signs
Temp Pulse Resp BP Pulse Ox
98.9 F 82 18 123/61 96
02/23/25 23:05 02/24/25 07:15 02/24/25 07:15 02/23/25 23:05 02/24/25 07:15
I&O
02/23/25 02/24/25 02/25/25
06:59 06:59 06:59
Intake Total 340 / 340 740 / 740
Output Total 975 / 975 850 / 850
Balance -635 / -635 -110 / -110
--- NOTE | 2025-02-24 08:22 | VATNOTE ---
VAT rounds: both arms continue with areas of erythema with swelling. Pt c/o pain and itching at both sites, RUE > LUE, however states there is improvement. Arms elevated as much as possible and heat applied to both sites. Pt states the heat feels
good. Will discuss continued treatment with heat with PCN. Pt educated about applying heat to sites in order to improve blood flow and improve healing.
--- NOTE | 2025-02-24 08:51 | PTCARENOTE ---
Patient received from manager shift. Patient resting comfortably in bed. AAO, VSS. M/S level of care. No events noted overnight. No complaints of pain at this time although he arms are red. Infected sites noted, heat applied. Continuing ABX.
No testing scheduled at this time. Call rojas in reach.
[2025-02-24 10:08] VITALS: BP 135/73
[2025-02-24 10:22] VITALS: BP 135/72
[2025-02-24 10:36] VITALS: BP 135/73
[2025-02-24] MEDS: VANCOCIN 540 MG IV (10:52)
--- NOTE | 2025-02-24 10:58 | CON.ID ---
Consultation
-
Date/Time Consultation Requested: 02/24/25 10:15
Date/Time Consultation Performed: 02/24/25 10:59
Requesting Provider: Dr Parrish
Performing Provider: Dr Arias
Reason for Consultation: cellulitis
Chief Complaint / Past History
Chief Complaint
black stool
History of Present Illness
Mr Murrieta is an 89 year old male with history of COPD, diverticulosis, colon cancer s/p colectomy and radiation 2012 at [facility] who presented here on 02/17 - one week ago - for black stools up to 3x daily x3 days - formed; not taking NSAIDs
but is on clopidogrel; no history of EtOH abuse. + black colored emesis x1. No bright red blood per rectum. On the day of admission he had new orthostasis which prompted him to come to the ER. Denied chest pain or abdominal pain, fevers or chills
or nausea or vomiting. Last colonoscopy was 2020 with diverticulosis, internal hemorrhoids - an anastomosis.
Since arrival here he has been afebrile, bp stable, wbc initially 6.5 and has remained normal since, hgb 8.7, plt 233, no L shift on arrival, cr 1.1, na 136, k 3.7, cr has been in the 0.9 to 1.1 range through the hospitalization, 02/19 CT a/p with IV
and oral contrast: possible mass at GE junction, lesions in the liver - probable mets, no evidence of bony metastatic disease, a mrsa screen was done and was negative - no other cultures, 02/18 he underwent endoscopy showing: 'Malignant gastric tumor
in the GEJ/ cardia- oozing' planned for repeat endoscopy for biopsy after plavix wash out. 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 Planned for palliative radiation with or without chemotherapy. Pathology is pending.
Starting about 3 days ago 02/21 he noted significant pain and swelling of the right arm associated with a PIV. The PIV was removed. Tip was not cultured. The next day he was diagnosed with cellulitis of the arm and started on cefazolin. There is
also new redness, possible bruising of the dependant portion of the contralateral arm - the L arm in the dependant portion of the proximal L forearm but he cannot recall a PIV there - he does note some swelling and dry skin in the area. Patient
plans to move to daughters home and establish care with [facility]; however he would like to stay until medical problems are resolved. Patient has been diagnosed with bilateral upper extremity cellulitis and was started on cefazolin 02/22 - today he was
transitioned to vancomycin. ID is consulted for assistance with management.
Past History
Additional Past Medical History:
hypertension, hyperlipidemia, osteoarthritis, carotid atherosclerosis, moderate aortic stenosis, mild to moderate aortic regurgitation, CVA, COPD, questionable obstructive sleep apnea, diverticulosis, hemorrhoids, colon cancer status post partial
colectomy and radiation, multinodular goiter, polymya
Additional Past Surgical History:
as per hpi
Allergy History:
No Known Allergies Allergy (Verified 02/17/25 18:53)
Medications Reviewed: Yes
Social History
Tobacco: Non-Smoker
Alcohol: None
Drug: None
Family History
Family History: Not Pertinent
Review of Systems
Review of Systems
General: Negative Fever or Chills
All systems: All other systems were reviewed and were negative
Vital Signs
Temp Pulse Resp BP Pulse Ox
98.2 F 82 18 123/61 96
02/24/25 07:55 02/24/25 07:15 02/24/25 07:15 02/23/25 23:05 02/24/25 07:15
Physical Exam
Physical Exam
Constitutional: No Acute Distress
Cardiovascular: Regular Rate and S1/S2; Negative Murmur or Rub
Pulmonary: Clear and Symmetric; Negative Wheezes, Rales or Rhonchi
Gastrointestinal: Soft, Non Tender, Non Distended and Normal Bowel Sounds
Skin: Warm, Dry and Other (distal right PIV site on the radial side with pustular lesion of dried blood - likely former PIV site; with surrounding erythema, warmth, tenderness and swelling; left arm dependent area with redness warmth, tenderness,
induration ); Negative Jaundice
Lines: PIV (no redness warmth, swelling or tenderness)
Lab / Diagnostic Study Results
02/24/25 05:49
02/24/25 05:49
Abs Immat Gran (auto) 0.0 10^3/uL (0-0.05) 02/18/25 03:53
Absolute Neuts (auto) 4.3 10^3/uL (1.4-6.5) 02/18/25 03:53
Absolute Lymphs (auto) 1.5 10^3/uL (1.2-3.4) 02/18/25 03:53
Absolute Monos (auto) 0.5 10^3/uL (0.1-0.6) 02/18/25 03:53
Absolute Basos (auto) 0.0 10^3/uL (0-0.2) 02/18/25 03:53
Immature Gran % 0.3 % (0-0.5) 02/18/25 03:53
Neutrophils % 66.3 % (42.2-75.2) 02/18/25 03:53
Lymphocytes % 24.6 % (20.5-51.1) 02/18/25 03:53
Monocytes % 8.2 % (1.7-9.3) 02/18/25 03:53
Eosinophils % 0.3 % (0-6) 02/18/25 03:53
Basophils % 0.3 % (0-2) 02/18/25 03:53
Microbiology Results
Micro:
02/18/25 03:53 MRSA Screen - Final
Nose No Methicillin Resistant Staphylococcus aureus isolated.
Assessment / Plan
Phlebitis of the R arm
Possible bruising vs limited cellulitis of the dependant area of the L arm
Aortic stenosis
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
- blood cultures x2
- the offending PIV was already removed from the R arm - patient remembers it being very painful c/w phlebitis
- there was a documented line here 02/17-02/21 removed for pain at the site
- US of both arms
- agree with vancomycin
- add cefepime for now
- elevation as tolerated
- follow blood cultures to 48 hours
Care Review
Plan reviewed with: Physician (Dr Parrish and Dr Mccormick - phlebitis, dispo)
--- NOTE | 2025-02-24 12:19 | CM ---
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 Room air. Receiving IV Abx. Peripheral Venous Ultrasound RUE/LUE today. PT/OT 02/24 recommend HH,
stair training completed.
Met with patient and daughter Anette;
patient will be discharging to daughter Anette's house: [address], [place] [address].
Dtr is Nurse Clin Mngr Education at [employer] and son in law works at [employer] as an lead solutions architect.
They have a home with disabled access and patient will be able to go to [employer] for his oncology care.
Daughter says they want to separate the parents for now, as patient's has dementia, and is rather demanding for her care needs, and patient needs some time to focus on his own care needs.
will be assisted at patient's home by son and other daughter Sarita. Dtr requested caregiver info for patient's - provided Caregiver List.
Anette agrees to new VN referral with agency that services [place] and has no agency preference- she understands [facility] accepted for SN/PT/OT.
IMM completed.
Spoke with [facility]; referral is accepted. Unknown d/c date at present.
Plan d/c to daughter's house with [facility] when medically ready.
--- NOTE | 2025-02-24 12:40 | VNURNOTE ---
Received update from MALLORY Anthony that patient's DC dispo plan is home to his daughter's house in [facility]. [facility] out of [facility] service area. CM aware. Non-admit [facility].
[2025-02-24] MEDS: STERILE WATER FOR INJECTION 10 ML IV ×2 (14:15→20:52)
[2025-02-24] MEDS: MAXIPIME 1000 MG IV ×2 (14:15→20:52)
--- NOTE | 2025-02-24 14:38 | PHA.VAN.IN ---
Assessment
- Assessment
Renal Function: Appears similar to baseline
Concomitant Antimicrobials: cefepime
AUC Dosing Plan
- Dosing Variables
Dosing Weight (kg): 75
Dosing CrCl (ml/min): 54
Vd coefficient (L/kg): 0.7
- Empiric Dosing
Initial / Loading Dose: 2000mg - 02/24 10:52
Maintenance Regimen: Vanc 1250mg Q24H starting 02/25 0600
Estimated AUC (mcg*h/mL): 502
Estimated Peak (mcg*h/mL): 34.4
Estimated Trough (mcg/ml): 11.3
Estimated Half Life (H): 14.1
- Monitoring
No levels ordered at this time: consider levels in next few days
Pharmacokinetics Vancomycin I
- -
Patient Age: 89
Patient Sex: Male
Vancomycin Day #: 1
Indication: Skin And Soft Tissue
Requesting Provider: Dr. Parrish / Hugo
Pertinent Antimicrobial Allergies:
NKDA
Height / Weight:
Height 5 ft 8 in
Actual Weight 75.1 kg
- Vital Signs / Lab Results
Temp Pulse Resp BP Pulse Ox
98.2 F 82 18 123/61 96
02/24/25 07:55 02/24/25 07:15 02/24/25 07:15 02/23/25 23:05 02/24/25 07:15
Lab Results - Hematology
02/22/25 02/23/25 02/24/25
03:23 06:06 05:49
WBC 6.3 6.1 5.8
Lab Results - Chemistry
02/22/25 02/23/25 02/24/25
03:23 06:06 05:49
BUN 14 17 17
Creatinine 0.9 0.9 0.9
Estimated Creat Clear 55 55 54
--- NOTE | 2025-02-24 15:01 | PTCARENOTE ---
Second set of blood cultures drawn before initiation of Cefipime even though the times would say otherwise. ID, Hospitalist and Pharmacy made aware to eliminate any confusion.
[2025-02-24] MEDS: LIPITOR 40 MG PO (17:32)
[2025-02-24] MEDS: SINGULAIR 10 MG PO (17:32)
--- NOTE | 2025-02-24 20:44 | PTCARENOTE ---
Pt with two black stools. PCT heme occult tested second stool, result heme positive. Pt denies symptoms. Last Hgb taken early this AM, 7.9. VSS. call center director wheat farmer Dr. Stevens contacted via TT and later telephone to discuss POC. Verbal order
taken for urgent H&H. Care ongoing.
[2025-02-24 20:52] VITALS: BP 120/63
[2025-02-24] MEDS: ZETIA 10 MG PO (20:53)
[2025-02-24] MEDS: FLOMAX 0.8 MG PO (20:53)
[2025-02-24 21:29] LABS: Hematocrit 24.3 % (39.0-52.0); Hemoglobin 8.3 g/dL (13.0-18.0)
[2025-02-25] MEDS: MAXIPIME 1000 MG IV ×4 (02:10→19:55)
[2025-02-25] MEDS: STERILE WATER FOR INJECTION 10 ML IV ×4 (02:10→19:55)
[2025-02-25] MEDS: VANCOCIN 275 MG IV (06:18)
[2025-02-25] MEDS: SYMBICORT 160/4.5 MCG INHALER 2 PUFF INH ×2 (07:17→20:35)
[2025-02-25 07:26] VITALS: BP 117/58
--- NOTE | 2025-02-25 08:26 | W.PN.GI.CBS2 ---
Addendum entered and electronically signed by Houston Stevens MD 02/25/25 08:55:
Hgb stable this am at 8.4. Probably passing old blood. Will sign off again for now. Please call back if needed
Original Note:
Today's Communication / Plan
-
Hgb last night up slightly from 7.9 to 8.3
Await repeat am labs. If dropping, will repeat EGD/hemospray/rx
If stable, may be passing old blood
Assessment / Plan
-
Impression:
GEjxn/cardia adenocarcinoma on EGD/bx 02/22
Hematemesis due to bleeding from tumor s/p EGD/hemospray 02/18
Indeterminate liver lesions on CT. Oncology consulted
Subjective
Subjective
Date of Service: February 25, 2025
Rec'd call from RN last night that pt passed two dark BMs, prior was brown. BM in basin - small pasty dark stool.
Objective
Data Reviewed
Laboratory Data:
Laboratory Results
02/24/25 05:49
Laboratory Results
Total Bilirubin 1.0 mg/dl (0.2-1.3) 02/21/25 03:35
AST 27 U/L (17-59) 02/21/25 03:35
ALT 19 U/L (0-50) 02/21/25 03:35
Alkaline Phosphatase 77 U/L (38-126) 02/21/25 03:35
Vital Signs and I&O:
Vital Signs
Temp Pulse Resp BP Pulse Ox
98.1 F 64 16 117/58 99
02/25/25 07:00 02/25/25 07:22 02/25/25 07:22 02/25/25 07:26 02/25/25 07:22
I&O
02/24/25 02/25/25 02/26/25
06:59 06:59 06:59
Intake Total 740 / 740 480 / 480
Output Total 850 / 850 1050 / 1050
Balance -110 / -110 -570 / -570
Physical Exam
Physical Exam
GI: Soft and Non Tender
--- NOTE | 2025-02-25 08:26 | W.PN.HOSP.TC ---
Today's Communication/Plan
-
see plan
Assessment / Plan
Assessment / Plan
Gen: NAD, AAOx3.
Eyes: EOMI, PERRLA, no scleral icterus.
Neck: supple.
CV: Continues to remain RRR, +S1/S2, 3/6 KAITLYNN
Resp: Continues to remain CTAB, no rales, wheezes, or rhonchi.
Abd: +BS, soft, NT, ND
Skin: Right upper extremity with thrombophlebitis. The erythema is more likely thrombophlebitis than actual cellulitis. LUE with erythema and induration without fluctuance.
Neuro: CN 2-12 intact, non-focal.
Psych: Normal mood and affect.
02/18/25 03:53 Nose MRSA Screen - Final
No Methicillin Resistant Staphylococcus aureus isolated.
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 No signs of bleeding now. Biopsied. Normal examined duodenum.
Acute blood loss anemia due to UGIB:
-due to GEJ tumor exacerbated by Plavix
-EGD above, path with invasive adenocarcinoma, well to moderately differentiated Cefepime/Vanco
-seen by ONC, plan for XRT outpt
-cont PPI
-s/p 3U pRBCs
-advanced to LR diet
Acute B/L UE cellulitis:
-pt was on Ancef for 2 days and transitioned to Vanco/Cefepime as per ID
-B/L UE venous U/S: Superficial thrombosis of the bilateral cephalic veins.
-follow BCxs (will need to bd NG x 48 hours prior to d/c)
Other problems:
Hypokalemia, resolved
Hypernatremia, resolved
h/o colon CA s/p partial colectomy and XRT
mod , mild-mod AR
Essential hypertension: holding home chlorthalidone
Hyperlipidemia: cont statin/Zetia
Osteoarthritis
Carotid atherosclerosis
h/o CVA: can restart Plavix one week post-EGD as per discussion with Dr. Stevens
COPD: cont montelukast
Possible THOMAS
PMR
BPH: cont Flomax
Prediabetes
Patient's daughter updated extensively at bedside on 02/24/25. Specifically, she is requested that his hemoglobin be normal. I explained that as long as his hemoglobin is stable and above 7 that we will not transfuse him to obtaining a hemoglobin
in the normal range.
FULL/SCDs
Anticipated Discharge: 24 - 48 hours
Subjective/Interval History
-
Date of Service: February 25, 2025
No new complaints. Denies chest pain or shortness of breath.
Objective Data
-
Labs:
Laboratory Results
02/24/25 02/25/25
21:21 07:04
WBC Pending
Hgb 8.3 L Pending
Hct 24.3 L Pending
Plt Count Pending
Vital Signs:
Vital Signs
Temp Pulse Resp BP Pulse Ox
98.1 F 64 16 117/58 99
02/25/25 07:00 02/25/25 07:22 02/25/25 07:22 02/25/25 07:26 02/25/25 07:22
I&O
02/24/25 02/25/25 02/26/25
06:59 06:59 06:59
Intake Total 740 / 740 480 / 480
Output Total 850 / 850 1050 / 1050
Balance -110 / -110 -570 / -570
[2025-02-25 08:51] LABS: Hematocrit 24.7 % (39.0-52.0); Hemoglobin 8.4 g/dL (13.0-18.0); Mean Corpuscular Hgb 30.1 pg (27.0-31.0); Mean Corpuscular Volume 88.5 fL (80.0-94.0); Mean Platelet Volume 10.3 fL (7.4-10.4); Platelet Count 229 10^3/uL (130-400); Red Blood Cell Count 2.79 10^6/uL (4.70-6.10); Red Cell Dist. Width 14.2 % (11.5-14.5); White Blood Cell Count 5.1 10^3/uL (4.8-10.8)
[2025-02-25] MEDS: PROTONIX 40 MG PO ×2 (09:28→19:55)
--- NOTE | 2025-02-25 09:34 | PHA.VAN.FU ---
Vancomycin Assessment / Plan
- Assessment
Renal Function: Stable
WBC's are: WNL
In the past 24 hrs, patient has been: Afebrile
Concomitant Antimicrobials: cefepime
- Dosing Plan
Continue: Vanc 1250mg Q24H
- Monitoring Plan
No level(s) ordered at this time: consider levels in next few days
- Follow Up
Pharmacy will continue to follow.
Vancomycin Follow UP
- -
Patient Age: 89
Patient Sex: Male
Vancomycin Day #: 2
Indication: Skin And Soft Tissue
Requesting Provider: Dr. Parrish / Hugo
Pertinent Antimicrobial Allergies:
NKDA
Height / Weight:
Height 5 ft 8 in
Actual Weight 75.1 kg
- Vital Signs / Lab Results
Temp Pulse Resp BP Pulse Ox
98.1 F 64 16 117/58 99
02/25/25 07:00 02/25/25 07:22 02/25/25 07:22 02/25/25 07:26 02/25/25 07:22
Lab Results - Hematology
02/23/25 02/24/25 02/25/25
06:06 05:49 08:31
WBC 6.1 5.8 5.1
Lab Results - Chemistry
02/23/25 02/24/25
06:06 05:49
BUN 17 17
Creatinine 0.9 0.9
Estimated Creat Clear 55 54
--- NOTE | 2025-02-25 10:00 | W.PN.ONC2 ---
Today's Communication / Plan
-
.
Impression
Impression
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
Plan
Plan
� Continue PPI and UGIB recs per GI recommendations
� Continue to follow pathology results
� Continue to monitor hemoglobin and transfuse as needed
� Continue all other medical care per primary medical team
Subjective/Objective
Chief Complaint
89-year-old male with past medical history of hypertension, hyperlipidemia, OA, carotid atherosclerosis, aortic stenosis, aortic regurgitation, CVA, COPD, diverticulosis, colon cancer status post partial colectomy and radiation, BPH who presented to
[facility] with black stools on 02/17. Patient has been transfused and Hb has been stable, this morning at 8.
Overnight he reports no acute complaints. He continues to tolerate diet and still is having tarry stools.
Subjective
Vital Signs:
Vital Signs
Temp Pulse Resp BP Pulse Ox
98.1 F 64 16 117/58 99
02/25/25 07:00 02/25/25 07:22 02/25/25 07:22 02/25/25 07:26 02/25/25 07:22
Lab Results:
Laboratory Data
WBC 5.1 10^3/uL (4.8-10.8) 02/25/25 08:31
Hgb 8.4 g/dL (13.0-18.0) L 02/25/25 08:31
Plt Count 229 10^3/uL (130-400) D 02/25/25 08:31
eGFR > 60.00 02/24/25 05:49
Physical Exam
General: AAOx3, conversant, comfortable
GI: Soft and Distended
Extremities: Pulses Present
Review of Systems
Review of Systems
Reviewed and negative unless otherwise stated
Gastrointestinal: Reports Other (dark tarry stool)
--- NOTE | 2025-02-25 13:05 | PTCARENOTE ---
Pt for transfer to [facility]. Report to receiving RN. Belongings collected from room. Transferred off unit via stretcher.
[2025-02-25 13:24] VITALS: BP 141/57
--- NOTE | 2025-02-25 14:00 | PTCARENOTE ---
patient was received from icu via stretcher with transport. patient was alert, oriented and verbally responsive. patient can make his needs known and understands when being spoken too. continues to tolerate his low residue diet well. he is able to
ambulate with stand by assistance of one nursing staff member. patient was oriented to his new room. all concerns and questions addressed
[2025-02-25 15:26] VITALS: BP 111/52
[2025-02-25 16:58] VITALS: BP 125/57; PULSE 77
[2025-02-25] MEDS: LIPITOR 40 MG PO (17:38)
[2025-02-25] MEDS: SINGULAIR 10 MG PO (17:38)
[2025-02-25] MEDS: ZETIA 10 MG PO (19:56)
[2025-02-25] MEDS: FLOMAX 0.8 MG PO (19:56)
[2025-02-25 22:35] VITALS: BP 122/54
[2025-02-26] MEDS: MAXIPIME 1000 MG IV ×2 (03:11→08:50)
[2025-02-26] MEDS: STERILE WATER FOR INJECTION 10 ML IV ×2 (03:11→08:50)
[2025-02-26] MEDS: VANCOCIN 275 MG IV (06:04)
[2025-02-26 07:00] VITALS: BP 131/63
[2025-02-26] MEDS: SYMBICORT 160/4.5 MCG INHALER 2 PUFF INH ×2 (07:47→20:33)
--- NOTE | 2025-02-26 08:12 | W.PN.HOSP.TC ---
Today's Communication/Plan
-
see plan
Assessment / Plan
Assessment / Plan
Gen: remains NAD, AAOx3.
Eyes: remains EOMI, PERRLA, no scleral icterus.
Neck: supple.
CV: RRR, +S1/S2, 3/6 KAITLYNN
Resp: CTAB, no rales, wheezes, or rhonchi.
Abd: +BS, soft, NT, ND
Skin: Right upper extremity with thrombophlebitis (improved). The erythema is more likely thrombophlebitis than actual cellulitis. LUE with erythema and induration without fluctuance (improved).
Neuro: CN 2-12 intact, non-focal.
Psych: Normal mood and affect.
02/24/25 14:24 Blood/Venous Blood Culture - Preliminary
No Growth in 24 hours- Final report to follow
02/24/25 13:31 Blood/Venous Blood Culture - Preliminary
No Growth in 24 hours- Final report to follow
02/18/25 03:53 Nose MRSA Screen - Final
No Methicillin Resistant Staphylococcus aureus isolated.
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 No signs of bleeding now. Biopsied. Normal examined duodenum.
Acute blood loss anemia due to UGIB:
-due to GEJ tumor exacerbated by Plavix
-EGD above, path with invasive adenocarcinoma, well to moderately differentiated Cefepime/Vanco
-seen by ONC, plan for XRT outpt
-cont PPI
-s/p 3U pRBCs
-advanced to LR diet
Acute B/L UE cellulitis:
-pt was on Ancef for 2 days and transitioned to Vanco/Cefepime as per ID
-B/L UE venous U/S: Superficial thrombosis of the bilateral cephalic veins.
-follow BCxs (will need to bd NG x 48 hours prior to d/c)
Other problems:
Hypokalemia, resolved
Hypernatremia, resolved
h/o colon CA s/p partial colectomy and XRT
mod , mild-mod AR
Essential hypertension: holding home chlorthalidone
Hyperlipidemia: cont statin/Zetia
Osteoarthritis
Carotid atherosclerosis
h/o CVA: can restart Plavix one week post-EGD as per discussion with Dr. Stevens
COPD: cont montelukast
Possible THOMAS
PMR
BPH: cont Flomax
Prediabetes
FULL/SCDs
Anticipated Discharge: Within 24 hours
Subjective/Interval History
-
Date of Service: February 26, 2025
Objective Data
-
Vital Signs:
Vital Signs
Temp Pulse Resp BP Pulse Ox
98.4 F 69 18 122/54 99
02/25/25 22:35 02/26/25 07:50 02/26/25 07:50 02/25/25 22:35 02/26/25 07:50
I&O
02/25/25 02/26/25 02/27/25
06:59 06:59 06:59
Intake Total 480 / 480 720 / 720
Output Total 1050 / 1050
Balance -570 / -570 720 / 720
[2025-02-26] MEDS: PROTONIX 40 MG PO ×2 (08:51→21:06)
[2025-02-26 09:42] VITALS: BP 131/63
--- NOTE | 2025-02-26 09:58 | VATNOTE ---
Vat rounds: Bilat arms continues to be swollen red and itchy. Pain has decreased. Offered warm compress. Will continue to monitor closely.
--- NOTE | 2025-02-26 09:58 | W.PN.ONC2 ---
Documented by User: Yessenia Chandler DO, Resident 02/26/25 10:01
Today's Communication / Plan
-
Discharge to daughter's house today or tomorrow
Follow-up pathology reports
Will continue care downtown at [facility]
Impression
Impression
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
Plan
Plan
� Discharge to daughter's house today or tomorrow and follow-up outpatient with [facility] next week
� Continue PPI and UGIB recs per GI recommendations
� Continue to follow pathology results
� Continue to monitor hemoglobin and transfuse as needed
� Continue all other medical care per primary medical team
Subjective/Objective
Chief Complaint
89-year-old male with past medical history of hypertension, hyperlipidemia, OA, carotid atherosclerosis, aortic stenosis, aortic regurgitation, CVA, COPD, diverticulosis, colon cancer status post partial colectomy and radiation, BPH who presented to
[facility] with black stools on 02/17. Overall patient is feeling good today, without any complaints of acute problems. Patient will follow-up outpatient with [facility] for management of primary cancer. He is to be discharged to his
daughter's house today or tomorrow.
Subjective
Vital Signs:
Vital Signs
Temp Pulse Resp BP Pulse Ox
98 F 69 18 131/63 99
02/26/25 07:00 02/26/25 07:50 02/26/25 07:50 02/26/25 07:00 02/26/25 07:50
Lab Results:
Laboratory Data
WBC 5.1 10^3/uL (4.8-10.8) 02/25/25 08:31
Hgb 8.4 g/dL (13.0-18.0) L 02/25/25 08:31
Plt Count 229 10^3/uL (130-400) D 02/25/25 08:31
eGFR > 60.00 02/24/25 05:49
Review of Systems
Review of Systems
All reviewed and negative unless otherwise stated

Documented by User: Janes Esteban MD 02/26/25 10:52
Plan
Plan
� Discharge to daughter's house today or tomorrow and follow-up outpatient with [facility] [place] next week
� Continue PPI and UGIB recs per GI recommendations
� Continue to follow pathology results
� Continue to monitor hemoglobin and transfuse as needed
� Continue all other medical care per primary medical team
Oncology Addendum:
Patient seen and evaluated and agree w/ resident note and plan as outlined
-f/u at [facility] for oncology management - scheduled outpt visits this coming week w/ radiation oncology/ medical oncology
--- NOTE | 2025-02-26 11:00 | CM ---
precision crop manager reviewed patient's chart and met with patient and patient to return to home with his daughter when stable, patient has been set up with [address], [place], [place] [address].
Plan; Home to daughter's house in [place] with [facility] visiting nurses.
[facility] Irvin
[phone]
--- NOTE | 2025-02-26 14:22 | W.PN.ID1 ---
Addendum entered and electronically signed by Darcy Arias MD 02/26/25 15:17:
ID service will no longer actively follow this patient please recall for further questions
Original Note:
Date of Service
Date of Service: February 26, 2025
Today's Communication
- start doxycycline and keflex for another 7 days; stop vancomycin/cefepime
- line removals prior to dc
- follow up with oncology
Assessment / Plan
Bilateral Phlebitis
Possibly with a component of cellulitis
Aortic stenosis
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
- blood cultures x2 no growth to date
- markedly improved physical exam
- US with bilateral thrombi of the cephalic veins
- start doxycycline and keflex for another 7 days; stop vancomycin/cefepime
- line removals prior to dc
- follow up with oncology
Chief Complaint
-: Other (phlebitis)
Subjective / Review of Systems
afebrile
bp stable
tolerating current therapies
marked improved erythema of the bilateral forearms
Vital Signs / Physical Exam
Vital Signs
Vital Signs
Temp Pulse Resp BP Pulse Ox
98 F 69 18 131/63 99
02/26/25 07:00 02/26/25 07:50 02/26/25 07:50 02/26/25 07:00 02/26/25 07:50
Physical Exam
Constitutional: No Acute Distress
Cardiovascular: Regular Rate and S1/S2; Negative Murmur or Rub
Pulmonary: Clear and Symmetric; Negative Wheezes or Rales
Gastrointestinal: Soft, Non Tender, Non Distended and Normal Bowel Sounds
Skin: Warm, Dry and Rash (notably improved erythema of the bilateral forearms, nearly resolved); Negative Jaundice
Objective Data
Lab Data
Lab Results
02/24/25 05:49
Estimated Creat Clear 54 ml/min 02/24/25 05:49
Total Bilirubin 1.0 mg/dl (0.2-1.3) 02/21/25 03:35
AST 27 U/L (17-59) 02/21/25 03:35
ALT 19 U/L (0-50) 02/21/25 03:35
Alkaline Phosphatase 77 U/L (38-126) 02/21/25 03:35
Most recent labs reviewed.
Micro Results:
02/24/25 13:31 Blood Culture - Preliminary
Blood/Venous No Growth in 48 hours- Final report to follow
02/24/25 14:24 Blood Culture - Preliminary
Blood/Venous No Growth in 24 hours- Final report to follow
02/25/25 08:35 MRSA Screen - Pending
Nose
02/18/25 03:53 MRSA Screen - Final
Nose No Methicillin Resistant Staphylococcus aureus isolated.
Care Review
Plan reviewed with: Physician (Dr Parrish - disposition and antibiotics)
[2025-02-26] MEDS: MAXIPIME IV (14:30)
[2025-02-26] MEDS: STERILE WATER FOR INJECTION IV ×2 (14:31→21:06)
[2025-02-26 15:18] VITALS: BP 115/62
[2025-02-26] MEDS: KEFLEX 500 MG PO ×2 (17:30→21:05)
[2025-02-26] MEDS: LIPITOR 40 MG PO (17:30)
[2025-02-26] MEDS: SINGULAIR 10 MG PO (17:30)
[2025-02-26] MEDS: FLOMAX 0.8 MG PO (21:04)
[2025-02-26] MEDS: ZETIA 10 MG PO (21:04)
[2025-02-26] MEDS: VIBRAMYCIN 100 MG PO (21:06)
[2025-02-26 22:39] VITALS: BP 127/57
[2025-02-27] MEDS: STERILE WATER FOR INJECTION IV ×2 (02:42→08:27)
[2025-02-27 07:00] VITALS: BP 124/58
[2025-02-27 07:24] LABS: Hematocrit 24.7 % (39.0-52.0); Hemoglobin 8.2 g/dL (13.0-18.0); Mean Corp Hgb Conc. 33.2 g/dL (33.0-37.0); Mean Corpuscular Hgb 29.7 pg (27.0-31.0); Mean Corpuscular Volume 89.5 fL (80.0-94.0); Mean Platelet Volume 10.5 fL (7.4-10.4); Platelet Count 270 10^3/uL (130-400); Red Blood Cell Count 2.76 10^6/uL (4.70-6.10); Red Cell Dist. Width 14.6 % (11.5-14.5); White Blood Cell Count 4.9 10^3/uL (4.8-10.8)
[2025-02-27] MEDS: SYMBICORT 160/4.5 MCG INHALER 2 PUFF INH (08:23)
[2025-02-27] MEDS: VIBRAMYCIN 100 MG PO (08:31)
[2025-02-27] MEDS: PROTONIX 40 MG PO (08:32)
[2025-02-27] MEDS: KEFLEX 500 MG PO ×2 (08:32→12:49)
--- NOTE | 2025-02-27 08:53 | W.PN.HOSP.TC ---
Addendum entered and electronically signed by Brandon Parrish MD 02/27/25 09:57:
On February 26, 2025 I had a lengthy discussion with the patient's daughter over the phone. I specifically discussed using Plavix moving forward. I explained that as per gastroenterology was okay to restart Plavix 1 week after EGD. At this time, since
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 The patient's daughter agreed with this assessment.
Original Note:
Today's Communication/Plan
-
d/c
Assessment / Plan
Assessment / Plan
Gen: continues to remain NAD, AAOx3.
Eyes: continues to remain EOMI, PERRLA, no scleral icterus.
Neck: supple.
CV: RRR, +S1/S2, 3/6 KAITLYNN
Resp: CTAB, no rales, wheezes, or rhonchi.
Abd: +BS, soft, NT, ND
Skin: Right upper extremity with thrombophlebitis (greatly improved). The erythema is more likely thrombophlebitis than actual cellulitis. LUE with vvery minimal erythema and induration without fluctuance.
Neuro: CN 2-12 intact, non-focal.
Psych: Normal mood and affect.
02/25/25 08:35 Nose MRSA Screen - Final
No Methicillin Resistant Staphylococcus aureus isolated.
02/24/25 14:24 Blood/Venous Blood Culture - Preliminary
No Growth in 48 hours- Final report to follow
02/24/25 13:31 Blood/Venous Blood Culture - Preliminary
No Growth in 48 hours- Final report to follow
02/18/25 03:53 Nose MRSA Screen - Final
No Methicillin Resistant Staphylococcus aureus isolated.
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 No signs of bleeding now. Biopsied. Normal examined duodenum.
Acute blood loss anemia due to UGIB:
-due to GEJ tumor exacerbated by Plavix
-EGD above, path with invasive adenocarcinoma, well to moderately differentiated Cefepime/Vanco
-seen by ONC, plan for XRT outpt
-cont PPI
-s/p 3U pRBCs
-advanced to LR diet
-Hb remains stable
Acute B/L UE cellulitis:
-pt was initially on Ancef for 2 days, was transitioned to Vanco/Cefepime, now transitioned to Doxy/Keflex through 03/05/25 as per ID
-B/L UE venous U/S: Superficial thrombosis of the bilateral cephalic veins.
-BCxs NGTD
Other problems:
Hypokalemia, resolved
Hypernatremia, resolved
h/o colon CA s/p partial colectomy and XRT
mod , mild-mod AR
Essential hypertension: holding home chlorthalidone
Hyperlipidemia: cont statin/Zetia
Osteoarthritis
Carotid atherosclerosis
h/o CVA: can restart Plavix one week post-EGD as per discussion with Dr. Stevens
COPD: cont montelukast
Possible THOMAS
PMR
BPH: cont Flomax
Prediabetes
FULL/SCDs
Medically cleared for discharge.
Total time spent on d/c = 35 min. This included today's physical exam, progress note, review of laboratory and diagnostic data, preparation of discharge documents and prescriptions, and discussions about the pt's hospital course and discharge plan
with the patient and other medical front desk coordinator involved in the patient's care.
Anticipated Discharge: Today
Subjective/Interval History
-
Date of Service: February 27, 2025
No new complaints.
Objective Data
-
Labs:
Laboratory Results
02/27/25
06:16
WBC 4.9
Hgb 8.2 L
Hct 24.7 L
Plt Count 270
Vital Signs:
Vital Signs
Temp Pulse Resp BP Pulse Ox
97.9 F 67 18 124/58 100
02/27/25 07:00 02/27/25 08:26 02/27/25 08:26 02/27/25 07:00 02/27/25 08:26
I&O
02/26/25 02/27/25 02/28/25
06:59 06:59 06:59
Intake Total 720 / 720 480 / 480
Balance 720 / 720 480 / 480
--- NOTE | 2025-02-27 10:47 | CM ---
Patient stable for d/c today
Per chart, [facility] has accepted for services
Updated daughter, Anette. Shared her brother will transport patient to her home. CM confirmed w/ Anette Maya will start care once patient is home.
Met w/ patient bedside, aware of d/c today. IMM verbally reviewed, copy given to patient, copy on chart
Plan: [facility]
[2025-02-27 12:59] VITALS: BP 135/66
--- NOTE | 2025-02-27 16:15 | W.DCSUMMARY ---
Discharge Summary
Discharge Data
Date of Admission: 02/17/25
Date of Discharge: 02/27/25
-
Pending Results: No
Hospital Course
Primary diagnoses:
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
Acute bilateral upper extremity cellulitis
Secondary diagnoses:
Hypokalemia
Hypernatremia, resolved
h/o colon cancer s/p partial colectomy and radiation
mod aortic stenosis, mild-mod aortic regurgitation
Essential hypertension
Hyperlipidemia
Osteoarthritis
Carotid atherosclerosis
h/o cerebrovascular accident
Chronic obstructive pulmonary
Possible obstructive sleep apnea
Polymyalgia rheumatica
Benign prostatic hypertrophy
Prediabetes
Consultants:
Gastroenterology
Oncology
Infectious disease
Imaging:
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 No signs of bleeding now. Biopsied. Normal examined duodenum.
B/L UE venous U/S: Superficial thrombosis of the bilateral cephalic veins.
89-year-old male who presented with a chief complaint of black stool as outlined in the H&P done on admission. Hospital course by problem list:
Acute blood loss anemia due to UGIB: Patient had an EGD as above. His acute blood loss anemia due to upper GI bleeding was due to GEJ tumor exacerbated by Plavix. Pathology showed invasive adenocarcinoma, well to moderately differentiated.
Patient was seen by oncology and the plan was for outpatient radiation therapy. He was on proton pump inhibitor. He received 3U pRBCs. His Hb remain was stable upon discharge. On February 26, 2025 I had a lengthy discussion with the patient's daughter
over the phone. I specifically discussed using Plavix moving forward. I explained that as per gastroenterology was okay to restart Plavix 1 week after EGD. 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
treated, I think the risk of restarting Plavix greatly outweighs any benefit at this time. The patient's daughter agreed with this assessment.
Acute B/L UE cellulitis: The patient was initially on Ancef for 2 days, was transitioned to Vanco/Cefepime, and then transitioned to Doxy/Keflex through 03/05/25 as per ID. Blood cultures were no growth to date at the time of discharge.
Discharge Plan
-
Patient Disposition: Home with Home Care
Discharge Diagnosis/Procedures: Acute blood loss anemia due to acute upper GI bleed due to GEJ tumor, acute bilateral upper extremity cellulitis
Condition: Good
Diet: Low Cholesterol
Activity: As tolerated
Driving Restrictions: Not until seen by your Dr
Blood Work: BMP and CBC in 1 week, prescription from PCP
Referrals:
Rodrigo Rios MD [Family Provider] - in less than 1 week
Janes Isbell MD [Active] -
Prescriptions:
New
doxycycline hyclate 100 mg Capsule
100 mg PO Q12 Qty: 14 0RF
cephalexin 500 mg Capsule
500 mg PO QID Qty: 28 0RF
pantoprazole 40 mg Tablet,Delayed Release (Dr/Ec)
40 mg PO BID Qty: 60 0RF
Continued
ezetimibe 10 MG tablet
10 mg PO HS
tamsulosin 0.4 MG capsule
0.8 mg PO HS
montelukast 10 MG tablet
10 mg PO QPM
cetirizine [Zyrtec] 10 mg Tablet
10 mg PO DAILY PRN (Reason: allergies)
fluticasone propionate 1 SPRAY spray,suspension
2 spray intranasal DAILY
albuterol sulfate 90 mcg/actuation Hfa Aerosol Inhaler
2 puff INHALATION Q6H PRN (Reason: SOB)
budesonide-formoterol [Symbicort] 160-4.5 mcg/actuation Hfa Aerosol Inhaler
2 puff INHALATION R BID
atorvastatin 80 MG tablet
40 mg PO QPM
Discontinued
chlorthalidone 25 MG tablet
25 mg PO DAILY Qty: 30 0RF
potassium chloride [Klor-Con M20] 20 MEQ tablet,ER particles/crystals
20 meq PO DAILY Qty: 0 0RF
Rx Instructions:
HOLD if holding Chlorthalidone.
clopidogrel 75 mg Tablet
75 mg PO DAILY
Discharge Orders:
Discharge Patient (As Directed); Ordered 02/27/25
Ordered By: Brandon Parrish
Discharge Date and Time
Discharge Date/Time: 02/27/25 13:20
Print Language: JAPANESE
== END 2025-02-27 13:20 | disposition home health service (06) | DRG 375 ==
LOC: 4 WEST ACU 22:52
PROVIDERS: Emergency Medicine; Internal Medicine; Internal Medicine Gastroenterology; Nurse Practitioner Family; Specialist; ADMITTING PHYSICIAN Hospitalist; ATTENDING PHYSICIAN Internal Medicine; CONSULT PHYSICIAN Internal Medicine Gastroenterology; CONSULT PHYSICIAN Student in an Organized Health Care Education/Training Program; EMERGENCY PHYSICIAN Emergency Medicine; FAMILY PHYSICIAN Family Medicine; OTHER PHYSICIAN Internal Medicine Hematology & Oncology
PROC: XW0G886 Introduction of Mineral-based Topical Hemostatic Agent into Upper GI, Via Natural or Artificial Opening Endoscopic, New Technology Group 6 (ICD-10-PCS; 2025-02-18)
PROC: 0DB48ZX Excision of Esophagogastric Junction, Via Natural or Artificial Opening Endoscopic, Diagnostic (ICD-10-PCS; 2025-02-22)
DX: C16.0 Malignant neoplasm of cardia (principal); D62 Acute posthemorrhagic anemia; K92.0 Hematemesis; L03.113 Cellulitis of right upper limb; L03.114 Cellulitis of left upper limb; E87.0 Hyperosmolality and hypernatremia; D68.32 Hemorrhagic disorder due to extrinsic circulating anticoagulants; Q39.9 Congenital malformation of esophagus, unspecified; E87.6 Hypokalemia; Z85.038 Personal history of other malignant neoplasm of large intestine; Z90.49 Acquired absence of other specified parts of digestive tract; Z92.3 Personal history of irradiation; I10 Essential (primary) hypertension; Z86.73 Personal history of transient ischemic attack (TIA), and cerebral infarction without residual deficits; M35.3 Polymyalgia rheumatica; N40.0 Benign prostatic hyperplasia without lower urinary tract symptoms; R73.03 Prediabetes; Z79.02 Long term (current) use of antithrombotics/antiplatelets; Z79.899 Other long term (current) drug therapy; Z79.51 Long term (current) use of inhaled steroids; E78.00 Pure hypercholesterolemia, unspecified; J44.9 Chronic obstructive pulmonary disease, unspecified; F41.9 Anxiety disorder, unspecified; Z79.82 Long term (current) use of aspirin
CPT/HCPCS: 88305; 74177; 80048; 80053; 82607; 82746; 83540; 83550; 84484; 85014; 85018; 85025; 85027; 86850; 86900; 86901; 86920; 87040; 87070; 93005; 93970; 94640; 96374; 97116; 97162; 97167; 97530; 97535; 99284; P9016; Q9967

== ENCOUNTER → 2025-07-29 13:59 | Outpatient (REF) | payer OTHER, SELFPAY ==
[2025-07-29 16:20] LABS: Urine Character Clear (Clear)
[2025-07-29 17:17] LABS: Urine Red Blood Cell 0-2 /HPF (0-2); Urine Squamous Cell 0-2 /LPF (Few); Urine White Cell 0-2 /HPF (0-5)
== END ==
LOC: REG 13:59
PROVIDERS: ATTENDING PHYSICIAN Nurse Practitioner Family; FAMILY PHYSICIAN Family Medicine
DX: C16.9 Malignant neoplasm of stomach, unspecified (principal)
CPT/HCPCS: 81003; 81015; 87086